=== PATIENT | female | born 1955 | race Caucasian/White ===

== ENCOUNTER 2016-05-25 09:42 | Emergency (ER) | payer OTHER ==
[~2016-05-25] VITALS: Ht 165.1 cm; Wt 56.8 kg
[2016-05-25 09:47] VITALS: BP 211/110; PULSE 90; RESP 20; O2SAT 100
--- NOTE | 2016-05-25 10:01 | ED.REPORT ---
HPI-General Illness Date of Service May 25, 2016 ED Provider: Joel Villalpando MD 60 year old female with a history of anxiety, ADHD, and HTN presents to the ER accompanied by her due to several years of abuse of her prescribed medication. She is requesting assistance weaning of said medications. Patient states that she began abusing because the prescribed dose has become increasingly less effective, and because her medication "gives her energy". She takes up to 6 tabs of dextroamphetamine at a time. Patient denies any suicidal or homicidal ideation, and any other medical complaints at this time. reports regular "medication binging" that involves staying awake for days at a time. Patient has called her primary care provider multiple times in recent weeks but has had no success contacting her. History of multiple refills of dextroamphetamine and clonazepam. Most recently, she filled 180 10mg tabs of dextroamphetamine 05/21/2016, of which she now has approximately 80 tabs remaining , and 60 0.5mg tabs of clonazepam 05/13/2016. She also admits to marijuana use. Nursing Notes Stated Complaint: ABUSE OF PRESCIPTION MEDS Chief Complaint: General Complaint Nursing Notes Reviewed: Yes Allergies: Coded Allergies: No Known Allergies (Unverified , 05/25/16) General Time Seen by MD: 10:00 Chief Complaint Other (Abuse of Prescription Medications) Hx Obtained From: Patient Arrived By: Walk-in Sudden in Onset?: No Onset Occurred: Onset unknown ("years") Past Medical History Past Medical History Anxiety ADHD Reports: Hypertension Social History Drug Use: THC Other Social History: Good social support, Ambulatory Status Independent Review of Systems Full Review of Systems Psychiatric: Reports: Anxiety, Insomnia, Denies: Change mental status, Confusion, Delusional, Depression, Hallucinations, auditory, Hallucinations, visual, Homicidal ideation, Hostile, Stress, Suicidal ideation, Unable to control self Complete sys rev & neg: except as marked. Physical Exam Vital Signs Vital Signs Date Time Temp Pulse Resp B/P Pulse Ox O2 Delivery O2 Flow Rate FiO2 05/25/16 14:16 80 20 175/109 98 Room Air 05/25/16 14:09 82 22 178/97 98 Room Air 05/25/16 09:47 36.2 90 20 211/110 100 Room Air Initial VS: Reviewed General/Constitutional: Well-developed, Well-nourished Head / Eyes: Atraumatic, Normocephalic Neck: Supple, Non-tender, Full range of motion Respiratory: Breath sounds normal, Clear to auscultation, No respiratory distress Cardiovascular: Regular rate & rhythm, Heart sounds normal, Intact distal pulses Extremities: Vascular intact, Neuro intact, No swelling, No tenderness Skin: Warm, Dry, No cyanosis Neurologic: Oriented X3, Speech NL, No motor deficits, No sensory deficits Psychiatric: Affect NL, Mood NL, Not suicidal, Not homicidal, No hallucinations , Cognitive function NL, Judgment/insight NL, Thought content NL Interpretation & Diagnostics Lab Results Interpretation Result Diagram: 05/25/16 1230 05/25/16 1230 Test 05/25/16 10:35 05/25/16 12:30 Hold Urine Received (Received) White Blood Count 7.5th/mm3 (3.8-10.1) Red Blood Count 4.45mil/mm3 (3.90-5.20) Hemoglobin 7.2g/dL (12.0-15.6) Hematocrit 24.9% (35.0-46.0) Mean Corpuscular Volume 56.0fL (81-100) Mean Corpuscular Hemoglobin 16.2pg (27.0-35.0) Mean Corpuscular Hemoglobin Concent 28.9% (32.0-37.0) Red Cell Distribution Width 19.2% (12.3-15.4) Platelet Count 629bil/L (150-400) Neutrophils (%) (Auto) 54.0% (40-74) Lymphocytes (%) (Auto) 28.8% (14-46) Monocytes (%) (Auto) 7.3% (4-12) Eosinophils (%) (Auto) 8.7% (0-5) Basophils (%) (Auto) 0.9% (0-3) Sodium Level 127mEq/L (134-144) Potassium Level 3.5mEq/L (3.5-5.2) Chloride Level 90mEq/L (97-108) Carbon Dioxide Level 24mmol/L (18-29) Blood Urea Nitrogen 11mg/dL (8-27) Creatinine 0.36mg/dL (0.57-1.00) Estimat Glomerular Filtration Rate 262mL/min (>59) Glucose Level 94mg/dL (60-99) Calcium Level 9.5mg/dL (8.5-10.1) Total Bilirubin 0.3mg/dL (0.0-1.2) Aspartate Amino Transf (AST/SGOT) 52U/L (0-50) Alanine Aminotransferase (ALT/SGPT) 42U/L (0-32) Alkaline Phosphatase 64U/L (25-165) Total Protein 7.1g/dL (6.4-8.4) Albumin 4.4g/dL (3.4-5.0) Re-Eval/Medical Decision Med Decision/Clinical Course In summary, the patient is a 60-year-old female prescribed large doses of dextroamphetamine as well as benzodiazepines for many years now presenting with her at admitting to several years of heavily abusing these medications. Most recently, she filled 180 10mg tabs of dextroamphetamine 05/21/2016, of which she now has approximately 80 tabs remaining, and 60 0.5mg tabs of clonazepam 05/13/2016. She also admits to marijuana use. Patient's states that when she felt her dextroamphetamine prescription that she generally goes on a binge of this medication staying up for many days at a time until she finally "crashes". Does not deny any of this. She states that she is never told her prescribing physician about this. She denies any suicidal ideation and here in the emergency department she is linear/organized and answering questions appropriately. She is afebrile with stable vital signs and examination as above. UA positive for marijuana and amphetamines Laboratory studies notable as below: No leukocytosis Hct 24.9 up from 22.5 on initial blood draw Hyponatremic, Sodium 127 up from 25 on initial blood Renal function normal Transaminases slightly elevated Patient was discussed in depth with her psychiatrist Dr. Quiroz who was quite surprised to hear that she is abusing her medications. She feels that the patient may continue to take her dextroamphetamine but it should be administered by her only and the prescribed dosage. She will make sure that the patient is seen first thing next week with plan to taper off this medication or discontinue it abruptly. From a psychiatric standpoint the patient is linear/organized without any suicidal ideation or disorganized behavior. We will reports quite manic behavior in the past when abusing her medications she is not manic in her presentation today. Patient was seen and fully evaluated by resident department [employer] social [employer] teacher did not feel that she requires psychiatric admission at this time and agrees with plan for outpatient management. That being said, I am quite surprised by the patient's significant anemia hyponatremia. Upon repeat history the patient admits to compulsive water consumption but denies any history of electrolyte abnormalities , GIB, melena or other explanation of her anemia. I advised admission however the patient adamantly refuses stating that she prefers to f/u with her PCP. Despite multiple attempts by myself and her nurse we are unable to convince her to be admitted for further workup. She is linear/organized and seems to have insight into her condition. She is not holdable from a medical or psychiatric perspective at this time. I discussed her the significant risks associated with anemia, bleeding and hyponatremia and she verbalizes understanding of this. She will call first thing tomorrow morning to follow up with her primary care doctor. Her well hold all of her medications and administer only as prescribed. The patient's additionally verbalizes understanding with the plan. He is advised to come right back to the emergency room should she change her mind about admission. Source of Hx: Old records Time of Eval: 11:08 Re-Evaluation/Progress Note: Updated patient on the plan of care. Time of Eval: 14:05 Re-Evaluation/Progress Note: Discussed lab results and need for admission. Patient is resistant to the plan, expresses desire to leave AMA. Discussed need for follow-up. Patient understands and agrees to the plan to leave AMA. Return precautions given. All other questions addressed. Consultation #1: Call Returned at: 11:04 Note: Discussed patient case with LUPIS Ayala. Consultation #2: Referral / Consult Name: Hoda Quiroz MD Consulted With: Psychiatry Call Returned at: 11:15 Note: Discussed patient case with her psychiatrist, Dr. Qiuroz. Will see patient next week. Agrees with plan to quit cold turkey, or decrease dose with monitoring medications. Counseled Regarding: Diagnosis, Lab results, Need for follow-up, When/why to return to ED Discharge & Departure Primary Impression: Polysubstance abuse Additional Impressions: Hyponatremia Anemia Anemia type: unspecified type Qualified Code: D64.9 - Anemia, unspecified Amphetamine abuse Marijuana abuse Noncompliance by refusing intervention or support Disposition: AGAINST MEDICAL ADVICE Discharge Condition All VS Reviewed: Yes Condition: Stable Patient Instructions: Hyponatremia (DC) Additional Instructions: Thank you for seeking care at emergency room for your medication abuse. Call your psychiatrist tomorrow to arrange a follow-up appointment to discuss your treatment plan. Call your primary care provider tomorrow to arrange a follow-up appointment as soon as possible for re-evaluation. Your should administer your prescribed dose of your medications. You should return to the ED immediately if you have any thoughts of harming yourself or others, or you develop confusion, dizziness/lightheadedness, or any other concerning signs or symptoms. Thank you for letting us partake in your care today. Referrals: Aurelio Ross MD (PCP) Hoda Quiroz MD Attestation Portions of this note were transcribed by Pérez Martinez. I, Dr. Villalpando, personally performed the history, physical exam and medical decision-making; I reviewed and confirmed the accuracy of the information in the transcribed note. Signed by: Eusebio Lorenz, 05/25/2016 and 14:13 copies to: Hoda Quiroz MD; Aurelio Ross MD, Beck O MD May 25, 2016 10:01 PÉREZ MARTINEZ May 25, 2016 10:18
[2016-05-25 11:50] LABS: BASOPHILS % (AUTO) 1.2 % (0-3); EOSINOPHILS % (AUTO) 8.7 % (0-5); MONOCYTES % (AUTO) 7.5 % (4-12); Mean Corpuscular Hemoglobin 16.6 pg (27.0-35.0); Mean Corpuscular Volume 55.7 fL (81-100); NEUTROPHILS % (AUTO) 56.6 % (40-74); Platelet Count 571 bil/L (150-400)
[2016-05-25 13:38] LABS: BASOPHILS % (AUTO) 0.9 % (0-3); EOSINOPHILS % (AUTO) 8.7 % (0-5); MONOCYTES % (AUTO) 7.3 % (4-12); Mean Corpuscular Hemoglobin 16.2 pg (27.0-35.0); Platelet Count 629 bil/L (150-400)
[2016-05-25] MEDS ORDERED: 0.9% Sodium Chloride 1,000 ML IV SCH (14:05)
[2016-05-25 14:09] VITALS: BP 178/97; PULSE 82; RESP 22; O2SAT 98
[2016-05-25 14:16] VITALS: BP 175/109; PULSE 80; RESP 20; O2SAT 98
== END 2016-05-25 14:30 | disposition left against medical advice (07) ==
LOC: SED 09:42
DX: F19.20 Other psychoactive substance dependence, uncomplicated (principal); E87.1 Hypo-osmolality and hyponatremia; D64.9 Anemia, unspecified; F15.20 Other stimulant dependence, uncomplicated; F12.20 Cannabis dependence, uncomplicated; I10 Essential (primary) hypertension; F41.9 Anxiety disorder, unspecified; F90.9 Attention-deficit hyperactivity disorder, unspecified type; Z91.19 Patient's noncompliance with other medical treatment and regimen

== ENCOUNTER 2016-05-31 19:10 | Emergency (ER) | payer OTHER ==
[2016-05-31 19:12] VITALS: BP 156/101; PULSE 88; RESP 16; O2SAT 100
--- NOTE | 2016-05-31 21:03 | ED.REPORT ---
HPI-General Illness Date of Service May 31, 2016 ED Provider: Dr. Marty Whittington MD A 60 year old female with a history of substance abuse, (chronic use and abuse of prescribed amphetamines) anxiety, ADHD, and hypertension presents to the ED complaining of worsening fatigue that began one week ago. Patient was seen in the ED on 05/25 for polysubstance abuse, hypokalemia and anemia and was discharged AGAINST MEDICAL ADVICE in good condition. Patient reports that she used to take up to 6 dextroamphetamine per day. Since abstaining (at her 's insistence) from the dextroamphetamine, patient has been experiencing weakness and general malaise. She states that she has been unable to eat because of the weakness. Patient denies history of ulcer or abnormal menses. She denies melena or bloody stools. She now presents hoping for hospital admission, as she feels unable to move around the house very well, and is eating very little. Nursing Notes Stated Complaint: MEDICATION ISSUES Chief Complaint: General Complaint Nursing Notes Reviewed: Yes Allergies: Coded Allergies: No Known Allergies (Unverified , 05/25/16) Scheduled Ferrous Sulfate (Ferrous Sulfate) 325 Mg Tablet 325 MG PO BID General Time Seen by MD: 21:04 Chief Complaint Other (Fatigue ) Hx Obtained From: Patient Arrived By: Walk-in Sudden in Onset?: No Onset Occurred: 1 week ago Symptom Duration: Since onset Associated with: Reports: Weakness Pertinent Negative: Pt denies other symptoms Recent Healthcare: No recent doctor visit, Recent hospitalization (05/25) Past Medical History Past Medical History Hypertension Anxiety ADHD Amphetamine addiction/abuse and current withdrawal Past Surgical History None reported Smoking History Unknown if Ever Smoker Social History Drug Use: THC Other Social History: Good social support, Ambulatory Status Independent Review of Systems Full Review of Systems Constitutional: Reports: Fatigue, Malaise, Weakness - generalized, Denies: Chills, Fever Respiratory: Denies: Shortness of breath Cardiovascular: Denies: Chest pain GI: Denies: Abdominal pain, Bloody/tarry stool, Hematemesis, Hematochezia, Melena, Nausea, Vomiting Neurologic: Reports: Weakness, Denies: Change LOC Complete sys rev & neg: except as marked. Physical Exam Vital Signs Vital Signs Date Time Temp Pulse Resp B/P Pulse Ox O2 Delivery O2 Flow Rate FiO2 05/31/16 23:43 90 16 173/91 97 Room Air 05/31/16 23:43 90 16 173/91 97 Room Air 05/31/16 19:12 36.7 88 16 156/101 100 Room Air Initial VS: Reviewed Neck: Supple, Non-tender, Full range of motion Skin: Warm, Dry, No cyanosis Neurologic: Alert, Oriented, Nonfocal Psychiatric: Mood/affect normal, Behavior normal, Normal thought content General/Constitutional: Awake, Alert, No acute distress Head / Eyes: Atraumatic, Normocephalic HEAD/EYES: Pale Sclera Respiratory / Chest: Atraumatic, Breath sounds NL, Breath sounds = bilat, No respiratory distress Cardiovascular: Heart rate NL, Regular rhythm, Heart sounds NL Abdomen: Atraumatic, Soft Upper Extremities Upper Extremity / MS: Atraumatic, Inspection NL, Neurologic intact, Vascular intact Lower Extremity / Pelvis / MS: Atraumatic, Inspection NL, Neurologic intact, Vascular intact Interpretation & Diagnostics Lab Results Interpretation Result Diagram: 05/31/16214905/31/162149 Test 05/31/16 21:50 05/31/16 22:20 White Blood Count 8.1th/mm3 (3.8-10.1) Red Blood Count 4.50mil/mm3 (3.90-5.20) Hemoglobin 7.3g/dL (12.0-15.6) Hematocrit 25.8% (35.0-46.0) Mean Corpuscular Volume 57.3fL (81-100) Mean Corpuscular Hemoglobin 16.2pg (27.0-35.0) Mean Corpuscular Hemoglobin Concent 28.3% (32.0-37.0) Red Cell Distribution Width 19.3% (12.3-15.4) Platelet Count 497bil/L (150-400) Neutrophils (%) (Auto) 47.4% (40-74) Lymphocytes (%) (Auto) 36.1% (14-46) Monocytes (%) (Auto) 6.6% (4-12) Eosinophils (%) (Auto) 8.2% (0-5) Basophils (%) (Auto) 1.6% (0-3) Erythrocyte Sedimentation Rate 12mm/hr (0-40) Hematology Comments Prothrombin Time 9.7sec (8.1-12.5) Prothromb Time International Ratio 0.91ratio Sodium Level 131mEq/L (134-144) Potassium Level 4.2mEq/L (3.5-5.2) Chloride Level 93mEq/L (97-108) Carbon Dioxide Level 27mmol/L (18-29) Blood Urea Nitrogen 13mg/dL (8-27) Creatinine 0.52mg/dL (0.57-1.00) Estimat Glomerular Filtration Rate 172mL/min (>59) Glucose Level 117mg/dL (60-99) Calcium Level 10.0mg/dL (8.5-10.1) Magnesium Level 2.0mg/dL (1.6-2.6) Iron Level 12ug/dL (35-150) Total Iron Binding Capacity 631ug/dL (250-450) Percent Iron Saturation 2%sat (15-50) Unsaturated Iron Binding 618.6ug/dL Total Bilirubin 0.2mg/dL (0.0-1.2) Aspartate Amino Transf (AST/SGOT) 23U/L (0-50) Alanine Aminotransferase (ALT/SGPT) 15U/L (0-32) Alkaline Phosphatase 50U/L (25-165) Troponin T 0.010ug/L (0.0-0.011) Pro-B-Type Natriuretic Peptide 129.9pg/mL (0-287) Total Protein 7.0g/dL (6.4-8.4) Albumin 4.2g/dL (3.4-5.0) Lipase 46U/L (13-60) Thyroid Stimulating Hormone (TSH) 3.280uIU/mL (0.450-4.500) Free Thyroxine 1.07ng/dL (0.82-1.77) Hold Steele Top Tube Received (Received) Urine Color Straw (YELLOW) Urine Appearance Clear (CLEAR,HAZY) Urine pH 6.5 (5.0-8.0) Urine Specific [place] 1.010 (1.003-1.035) Urine Protein Negativemg/dL (NEG,TRACE) Urine Glucose (UA) Negativemg/dL (NEGATIVE) Urine Ketones Negativemg/dL (NEGATIVE) Urine Occult Blood Negative (NEGATIVE) Urine Nitrite Negative (NEGATIVE) Urine Bilirubin Negative (NEGATIVE) Urine Urobilinogen Normalmg/dL (NORMAL) Urine Leukocyte Esterase Negative (NEGATIVE) Urine RBC 0-2/hpf (0-2) Urine WBC 0-5/hpf (0-5) Urine Epithelial Cells Occasional/hpf (NONE-MOD) Urine Crystals None seen (NONE SEEN) Urine Bacteria None/hpf (NONE-FEW) Urine Hyaline Casts None/lpf (NONE) Urine Granular Casts None seen (NONE SEEN) Urine Waxy Casts None seen (NONE SEEN) Urine Red Blood Cell Casts None seen (NONE SEEN) Urine White Blood Cell Casts None seen (NONE SEEN) Urine Mucus None seen (None Seen) Urine Trichomonas None seen (NONE SEEN) Urine Yeast None (NONE SEEN) Urine Culture Reflexed Not indicated ECG Interpretation ECG Interpretation: Sinus Rhythm LVH chest leadvolts Rate 85 Time: 21:22 Interpreted by: ED physician X-Ray Chest Interpretation Chest Xray Interpretation: IMPRESSION: No acute abnormalities Interpretation / Wet Read by: Wet read ED physician Re-Eval/Medical Decision Med Decision/Clinical Course 60-year-old female with recent precipitous discontinuation of dextroamphetamine by prescription. She has been abusing these, sometimes taking his many as six tablets at a time. She is now understandably lethargic and unmotivated, not unusual for abrupt withdrawal from amphetamines. She already has a psychiatrist and use to consult therefore possible anti-depressant therapy, but there is no indication for hospitalization for withdrawal from amphetamines. Her hyponatremia, which was profound on her first presentation, has completely resolved. She is still anemic but unchanged. This is obviously iron deficiency anemia. She needs upper and lower GI evaluation reasonably urgently. She was provided with iron, based on her gross iron deficiency by test, and by her MCV of fifty-eight. She is discharged now stable condition with the support of her for home therapy and for follow-up with her psychiatrist and PCP. Time of Eval: 23:33 Patient Status: Condition improved Re-Evaluation/Progress Note: Patient is rechecked. She is informed of her lab results, X-ray results and diagnosis. All of the patient's questions are addressed. She understands and agrees with the treatment plan to discharge. Counseled Regarding: Diagnosis, Lab results, Need for follow-up, When/why to return to ED Discharge & Departure Primary Impression: Amphetamine abuse Additional Impression: Iron deficiency anemia Iron deficiency anemia type: unspecified iron deficiency Qualified Code: D50.9 - Iron deficiency anemia, unspecified Disposition: Home Discharge Condition All VS Reviewed: Yes Condition: Stable Patient Instructions: Amphetamine/Dextroamphetamine (By mouth), Iron Deficiency Anemia (DC) Additional Instructions: Your low sodium has resolved. Your anemia remains unchanged. This needs to be investigated with endoscopy, and your doctor can arrange that. There is a possibility of colon polyps and even early cancers, and this should not be ignored. Meanwhile, take iron twice daily with food. Follow-up with your psychiatrist regarding her amphetamine withdrawal. Generally, an antidepressant is helpful in reducing the symptoms of craving and improving your overall sense of well-being. Follow-up with your regular doctor as soon as possible. Return for any immediate issues of concern. Referrals: Aurelio Ross MD (PCP) Scribe Attestation Portions of this note were transcribed by Marion Reagan. I, Dr. Whittington personally performed the history, physical exam and medical decision-making; I reviewed and confirmed the accuracy of the information in the transcribed note. Signed by: Eusebio Hernández, 05/31/16 0111. copies to: Aurelio Ross MD, Christopher W MD May 31, 2016 21:03 MARION REAGAN May 31, 2016 21:16
[2016-05-31 22:29] LABS: Mean Corpuscular Volume 57.3 fL (81-100)
[2016-05-31 22:30] LABS: Mean Corpuscular Hemoglobin 16.2 pg (27.0-35.0); Platelet Count 497 bil/L (150-400)
[2016-05-31 22:32] LABS: INR 0.91 ratio
[2016-05-31 22:42] LABS: ERYTHROCYTE SEDIMENTATION RATE 12 mm/hr (0-40)
[2016-05-31 22:54] LABS: BASOPHILS % (AUTO) 1.6 % (0-3); EOSINOPHILS % (AUTO) 8.2 % (0-5); MONOCYTES % (AUTO) 6.6 % (4-12); NEUTROPHILS % (AUTO) 47.4 % (40-74)
[2016-05-31 22:57] LABS: TROPONIN T 0.01 ug/L (0.0-0.011); Unsaturated Iron Binding 618.6 ug/dL
[2016-05-31 23:09] LABS: APPEARANCE,URINE CLEAR (CLEAR,HAZY); COLOR,URINE STRAW (YELLOW); OCCULT BLOOD,URINE NEGATIVE (NEGATIVE); PH,URINE 6.5 (5.0-8.0); UROBILINOGEN,URINE NORMAL (NORMAL)
[2016-05-31] MEDS ORDERED: FERR-83 PO (23:30)
[2016-05-31 23:43] VITALS: BP 173/91; PULSE 90; RESP 16; O2SAT 97
--- NOTE | 2016-06-01 15:13 | DRSVH ---
PROCEDURE: X-RAY CHEST ONE VIEW, PORTABLE ([id number]) INDICATIONS: chf by hx TECHNIQUE: One view of the chest was acquired. COMPARISON: None. FINDINGS: Surgical changes and devices: None. Lungs and pleura: No pleural effusions or pneumothorax. Lungs are clear. Mild hyperexpansion sugge stive of COPD. Mediastinum: Mediastinal contours appear normal. Heart size is normal. Bones and chest wall: No suspicious bony lesions. Overlying soft tissues appear unremarkable. IMPRESSION: No acute pulmonary process. Dictated by: Marizol Bedoya M.D. on 05/31/2016 at 21:37 Approved by: Marizol Bedoya M.D. on 05/31/2016 at 21:38
== END 2016-05-31 23:44 | disposition home or self-care (01) ==
LOC: SED 19:10
DX: F15.10 Other stimulant abuse, uncomplicated (principal); D50.9 Iron deficiency anemia, unspecified; I10 Essential (primary) hypertension

== ENCOUNTER 2016-08-07 08:45 | Emergency (ER) | payer OTHER, MEDICARE ==
[~2016-08-07] VITALS: Ht 162.6 cm; Wt 52.3 kg
[~2016-08-07 08:45] MED LIST: FERR-83 PO
[2016-08-07 08:57] VITALS: BP 159/96; PULSE 103; RESP 26; O2SAT 98
[2016-08-07 09:04] VITALS: BP 159/96; PULSE 100; RESP 24; O2SAT 97
--- NOTE | 2016-08-07 09:05 | ED.REPORT ---
HPI-Altered Mental Status Date of Service Aug 07, 2016 ED Provider: Dr. Rowell A 60 year old female with h/o amphetamine substance abuse, bipolar, HTN, and anxiety presents to the ED via EMS due to AMS. Per , patient was up all night walking around the house. Patient reports that thought she was acting strange and he decided to call EMS, but she is unsure why.Per EMS, the patient was holding her dog's medication on scene. Associated symptoms include facial bruising from a fall. She denies any headache, chest pain, abdominal pain , extremity pain, or loss of extremity functioning. She reports normal bowel movements and urination. She reports that she does not normally eat very much, and does not notice any change in baseline appetite or fluid intake. She has not been on her amphetamine medication for 2 months. She reports that she is at [facility], and the month is July. Nursing Notes Stated Complaint: ALT LOC Chief Complaint: General Complaint Nursing Notes Reviewed: Yes Allergies: Coded Allergies: No Known Allergies (Unverified , 08/07/16) Scheduled Ferrous Sulfate (Ferrous Sulfate) 325 Mg Tablet 325 MG PO BID General Time Seen by MD: 09:04 Chief Complaint Other (AMS) Hx Obtained From: Patient, EMS Arrived By: Ambulance Sudden in Onset?: No Onset Occurred: Onset unknown Symptom Duration: Duration unknown Progression since Onset: Unchanged Severity: Current: No pain currently Severity: Maximum: No pain Recent Healthcare: No recent doctor visit Similar Sx Previous: No Past Medical History Past Medical History Notes: 05/31/16 ED visit for fatigue, diagnosed with amphetamine abuse. Past Medical History Hypertension Anxiety bipolar ADHD Amphetamine addiction/abuse and current withdrawal Denies migraines Denies: Stroke Denies: Seizure disorder Past Surgical History None reported Reports: Appendectomy, Denies: Cholecystectomy, Hysterectomy Smoking History Former Smoker Social History Alcohol Use: "Social" Drug Use: THC Other Social History: Good social support, Ambulatory Status Independent Review of Systems Review of Systems Note: no change in appetite Cardiovascular: Denies: Chest pain GI: Denies: Abdominal pain Skin: Reports Bruising (face) Neurologic: Denies: Headache Complete sys rev & neg: except as marked. Female: Denies: Incontinence Musculoskeletal: Denies: Extremity pain Physical Exam Initial Vital Signs Vital Signs (First) Date Time Temp Pulse Resp B/P Pulse Ox O2 Delivery O2 Flow Rate FiO2 08/07/16 08:57 36.8 103 26 159/96 98 Room Air Initial VS: Reviewed, Vital signs abnormal Skin: Warm, Dry General/Constitutional: Awake, Alert, No acute distress, Well appearing Head / Eyes: Normocephalic, PERRL, EOMI Bruising next to left eye. Neck: Atraumatic, Supple, No meningismus, Full range of motion Respiratory / Chest: Atraumatic, Breath sounds NL, Breath sounds = bilat, No respiratory distress, No rales, No rhonchi, No wheezing Cardiovascular: Heart rate NL, Regular rhythm, Heart sounds NL, No gallop, No murmurs, No rubs Neurologic: Oriented X3, No motor deficits, No sensory deficits, CN II - XII intact Speech: Positive: Slurred (slightly slurred speech) ENT: Atraumatic, Mucous membranes moist Abdomen: Soft, Non-tender, No guarding, No rebound Interpretation & Diagnostics Lab Results Interpretation Result Diagram: 08/07/16 0948 08/07/16 0948 Test 08/07/16 09:48 White Blood Count 17.2th/mm3 (3.8-10.1) Red Blood Count 4.76mil/mm3 (3.90-5.20) Hemoglobin 10.5g/dL (12.0-15.6) Hematocrit 34.4% (35.0-46.0) Mean Corpuscular Volume 72.3fL (81-100) Mean Corpuscular Hemoglobin 22.1pg (27.0-35.0) Mean Corpuscular Hemoglobin Concent 30.5% (32.0-37.0) Red Cell Distribution Width 25.7% (12.3-15.4) Platelet Count 442bil/L (150-400) Neutrophils (%) (Auto) 81.6% (40-74) Lymphocytes (%) (Auto) 11.3% (14-46) Monocytes (%) (Auto) 6.6% (4-12) Eosinophils (%) (Auto) 0.1% (0-5) Basophils (%) (Auto) 0.2% (0-3) Sodium Level 134mEq/L (134-144) Potassium Level 3.8mEq/L (3.5-5.2) Chloride Level 94mEq/L (97-108) Carbon Dioxide Level 26mmol/L (18-29) Blood Urea Nitrogen 13mg/dL (8-27) Creatinine 0.67mg/dL (0.57-1.00) Estimat Glomerular Filtration Rate 128mL/min (>59) Glucose Level 119mg/dL (60-99) Calcium Level 10.8mg/dL (8.5-10.1) Magnesium Level 2.4mg/dL (1.6-2.6) Total Bilirubin 0.3mg/dL (0.0-1.2) Aspartate Amino Transf (AST/SGOT) 34U/L (0-50) Alanine Aminotransferase (ALT/SGPT) 21U/L (0-32) Alkaline Phosphatase 52U/L (25-165) Total Protein 6.8g/dL (6.4-8.4) Albumin 4.6g/dL (3.4-5.0) Alcohols < 10mg/dL (0-10) ECG Interpretation ECG Interpretation: Rate is 97. Sinus rhythm. Normal axis, no ST or T wave changes. Time: 09:40 Interpreted by: ED physician X-Ray Chest Interpretation Chest Xray Interpretation: IMPRESSION: No acute cardiopulmonary process is evident. Dictated by: Justin Cintron M.D. on 08/07/2016 at 8:48 Approved by: Justin Cintron M.D. on 08/07/2016 at 8:49 Interpretation / Wet Read by: Interpret - Radiologist CT Head Interpretation IMPRESSION: 1. No acute intracranial hemorrhage. 2. Mild parenchymal volume loss. 3. Possible chronic small vessel ischemic changes. Dictated by: Justin Cintron M.D. on 08/07/2016 at 8:49 Approved by: Justin Cintron M.D. on 08/07/2016 at 8:51 Interpretation / Wet Read by: Interpret - Radiologist Re-Eval/Medical Decision Med Decision/Clinical Course The patient's called EMS and he was concerned about her mental status, he never showed up in the ER. The patient was appropriate in answering questions , she was alert while here. The only abnormality was she had some slight slurring of her speech which could be related to benzodiazepine or stroke. She otherwise has a normal neurologic exam. The patient says she has a dry mouth and her speech is normal. She did not have any waxing or waning symptoms. Her evaluation here was unremarkable. Additional differential diagnoses considered were bloodshot abnormality such as hyponatremia, substance abuse, urinary infection, and pneumonia. The patient was found to have an elevated white cell count however she has no symptoms of infection and no source of infection was found. Source of Hx: Old records, EMS Re-Evaluation/Progress : Time of Eval: 10:45 Patient Status: Condition improved Re-Evaluation/Progress Note: Rechecked patient, explained test results, diagnosis, and plan for discharge. Patient understands and agrees with the plan. Allquestions addressed. Counseled Regarding: Diagnosis, Lab results, Need for follow-up Patient Discharge & Departure Impression: Primary Impression: Behavior concern in adult Disposition: Home Discharge Condition All VS Reviewed: Yes Condition: Improved Additional Instructions: Your behavior and mentation are normal to us here in the ED. There are signs of infection in your blood, but you urine, chest XRay and all other tests were normal. Return to the emergency department if If you have a fever, or any new or worsening or concerning symptoms. Referrals: Aurelio Ross MD (PCP) Scribe Attestation Portions of this note were transcribed by Mayank Andersen. I, Dr. Rowell personally performed the history, physical exam and medical decision-making; I reviewed and confirmed the accuracy of the information in the transcribed note. Signed by: Eusebio Tong, 08/07/2016, 1113. copies to: Aurelio Ross MD, Jena M MD Aug 07, 2016 09:05 Mayank Andersen Aug 07, 2016 09:14
[2016-08-07] MEDS ORDERED: 0.9% Sodium Chloride 1,000 ML IV ONE (09:14)
--- NOTE | 2016-08-07 09:51 | DRSVH ---
PROCEDURE: X-RAY CHEST ONE VIEW, PORTABLE ([id number]) INDICATIONS: confusion TECHNIQUE: One view of the chest was acquired. COMPARISON: [facility], CR, XR CHEST 1VW (PORTABLE), 05/31/2016, 21:11. FINDINGS: Surgical changes and devices: None. Lungs and pleura: No pleural effusions or pneumothorax. Lungs are clear. The lungs may be hyperexp anded. Mediastinum: Mediastinal contours appear normal. Heart size is normal. There appears to be mild ao rtic atherosclerosis. Bones and chest wall: No suspicious bony lesions. Overlying soft tissues appear unremarkable. IMPRESSION: No acute cardiopulmonary process is evident. Dictated by: Justin Cintron M.D. on 08/07/2016 at 8:48 Approved by: Justin Cintron M.D. on 08/07/2016 at 8:49
--- NOTE | 2016-08-07 09:53 | DRSVH ---
PROCEDURE: CT BRAIN WITHOUT CONTRAST ([id number]) INDICATIONS: slurring of speech TECHNIQUE: Noncontrast 4.5 mm thick angled axial sections acquired from the foramen magnum to the vertex, with c oronal reformats. COMPARISON: None. FINDINGS: Image quality: Diagnostic. Brain: There is no acute intra-axial or extra-axial hemorrhage. No extra-axial fluid collection is i dentified. There is no midline shift or mass effect. The orbits are grossly unremarkable. No large areas of diffusely decreased attenuation are evident within the brain to suggest diffuse cer ebral edema. No definite parenchymal abnormalities are identified. However, there are possible vagu e subtle areas of low attenuation within the deep white matter of the supratentorial brain. The ventricles and cortical sulci are moderately prominent Bones: Calvarium and visualized facial bones are grossly intact. The imaged paranasal sinuses and m astoid air cells are clear. IMPRESSION: 1. No acute intracranial hemorrhage. 2. Mild parenchymal volume loss. 3. Possible chronic small vessel ischemic changes. Dictated by: Justin Cintron M.D. on 08/07/2016 at 8:49 Approved by: Justin Cintron M.D. on 08/07/2016 at 8:51
[2016-08-07 09:58] LABS: BASOPHILS % (AUTO) 0.2 % (0-3); EOSINOPHILS % (AUTO) 0.1 % (0-5); MONOCYTES % (AUTO) 6.6 % (4-12); Mean Corpuscular Hemoglobin 22.1 pg (27.0-35.0); Mean Corpuscular Volume 72.3 fL (81-100); NEUTROPHILS % (AUTO) 81.6 % (40-74); Platelet Count 442 bil/L (150-400)
[2016-08-07 10:19] LABS: Magnesium 2.4 mg/dL (1.6-2.6)
[2016-08-07 11:27] VITALS: BP 157/99; PULSE 98; RESP 19; O2SAT 99
[2016-08-07 11:34] VITALS: BP 157/99; PULSE 98; RESP 19; O2SAT 99
[2016-08-08] MEDS ORDERED: TRAZ-118 PO (17:42)
[2016-08-08] MEDS ORDERED: PROP20TA5 PO (17:42)
[2016-08-08] MEDS ORDERED: BUPR100T8 PO (17:42)
[2016-08-08] MEDS ORDERED: ZIPR80CA22 PO (17:42)
[2016-08-08] MEDS ORDERED: ROSU10TA24 PO (17:42)
[2016-08-08] MEDS ORDERED: LISI-567 PO (17:42)
[2016-08-08] MEDS ORDERED: BUSP30TA2 PO (17:42)
[2016-08-08] MEDS ORDERED: KLO5T PO (17:42)
[2016-08-08] MEDS ORDERED: MIRT30TA6 PO (17:42)
[2016-08-08] MEDS ORDERED: ZIPR40CA24 PO (17:42)
== END 2016-08-07 11:34 | disposition home or self-care (01) ==
LOC: SED 08:45
DX: R46.4 Slowness and poor responsiveness (principal); R41.82 Altered mental status, unspecified; I10 Essential (primary) hypertension; F15.180 Other stimulant abuse with stimulant-induced anxiety disorder; F31.9 Bipolar disorder, unspecified; Z87.891 Personal history of nicotine dependence
CPT/HCPCS: 36415; 70450; 71010; 80053; 81002; 83735; 85025; 93005; 96360; 99285; G0480; J7030

== ENCOUNTER 2016-08-08 15:11 | Inpatient (IN) | payer OTHER, MEDICARE ==
[~2016-08-08] VITALS: Ht 162.6 cm; Wt 53.9 kg
[2016-08-08 15:22] VITALS: BP 147/96; PULSE 83; RESP 16; O2SAT 98
--- NOTE | 2016-08-08 15:57 | ED.REPORT ---
HPI-General Illness Date of Service Aug 08, 2016 ED Provider: Joel Villalpando MD Pt is a 60 year old female with a medical history including hypertension, bipolar disorder, and amphetamine abuse presents to the ED with altered mental status noticed by her last night at 1800. The patient was reportedly acting normal two days ago when her left for work, but he returned home yesterday to find her disoriented, falling over, making incoherent statements, and acting abnormally. Associated symptoms include two days of insomnia and balance problems intermittently, she has been up all night cleaning the house rapidly moving from one task to another. The patient denies chest pain, SOB, or other symptoms. She was seen in the ED at onset last night but presented awake and alert, and was subsequently discharged after a normal work-up, before her 's arrival. The patient has had similar symptoms in the past associated with amphetamine abuse, but she denies any recent amphetamine use. The patient' s psychiatrist recently prescribed Wellbutrin which she reportedly began taking one week ago, but her could not find the bottle today and it is not with the medications she has brought in. Nursing Notes Stated Complaint: DISORIENTATION, CONFUSION Chief Complaint: Neuro Symptoms/ Deficits Nursing Notes Reviewed: Yes Allergies: Coded Allergies: No Known Allergies (Unverified , 08/08/16) Scheduled Bupropion ER (Bupropion ER) 100 Mg Tablet.er 100 MG PO BID Buspirone (Buspirone) 30 Mg Tablet 30 MG PO BID Ferrous Sulfate (Ferrous Sulfate) 325 Mg Tablet 325 MG PO BID Lisinopril (Lisinopril) 20 Mg Tablet 20 MG PO DAILYWD Mirtazapine (Mirtazapine) 30 Mg Tablet 60 MG PO DAILYWD Propranolol HCl (Propranolol HCl) 20 Mg Tablet 20 MG PO TID Rosuvastatin Calcium (Rosuvastatin Calcium) 10 Mg Tablet 10 MG PO DAILYWD Trazodone (Trazodone) 100 Mg Tablet 150-200 MG PO HS Ziprasidone (Ziprasidone) 80 Mg Capsule 80 MG PO QAM ZIPRASIDONE 80 MG IN AM, 40 MG W/ DINNER Ziprasidone (Ziprasidone) 40 Mg Capsule 40 MG PO DAILYWD ZIPRASIDONE 80 MG IN AM, 40 MG W/ DINNER Scheduled PRN Clonazepam (Clonazepam) 0.5 Mg Tablet 0.5 MG PO BID PRN PRN For Anxiety General Time Seen by MD: 15:57 Chief Complaint Altered mental status Hx Obtained From: Patient, Spouse Arrived By: Walk-in Sudden in Onset?: Yes Onset Occurred: Yesterday (Noticed by ) Symptom Duration: Since onset Severity: Current: No pain currently Severity: Maximum: No pain Pertinent Negative: Relieved by nothing Context Related History: Reports Psychiatric history Recent Healthcare: Recent doctor visit Similar Sx Previous: Yes Past Medical History Past Medical History Notes: 05/31/16 ED visit for fatigue, diagnosed with amphetamine abuse. Past Medical History Hypertension Anxiety Bipolar ADHD Prescription amphetamine addiction/abuse and withdrawal Denies migraines Past Surgical History None reported Reports: Appendectomy Smoking History Former Smoker Social History Alcohol Use: "Social" Drug Use: THC Other Social History: Good social support, Ambulatory Status Independent Review of Systems + Acting abnormally, making incoherent statements, balance problems Full Review of Systems Constitutional: Denies: Fever Respiratory: Denies: Non-productive cough, Shortness of breath Cardiovascular: Denies: Chest pain GI: Denies: Diarrhea, Vomiting Psychiatric: Reports: Change mental status, Confusion (Disorientation), Insomnia Complete sys rev & neg: except as marked. Physical Exam Vital Signs Vital Signs Date Time Temp Pulse Resp B/P Pulse Ox O2 Delivery O2 Flow Rate FiO2 08/08/16 17:59 36.8 74 23 122/77 99 Room Air 08/08/16 17:53 74 23 122/77 99 Room Air 08/08/16 15:22 36.8 83 16 147/96 98 Room Air Initial VS: Reviewed Skin: Warm, Dry General/Constitutional: Awake, Alert Behavior: Positive: Agitated Slightly pressured Head / Eyes: Atraumatic, Normocephalic ENT: Airway patent Mouth: Positive: Mucous membranes dry Respiratory / Chest: Breath sounds NL, Breath sounds = bilat, No respiratory distress Cardiovascular: Heart rate NL, Regular rhythm, Heart sounds NL, No gallop, No murmurs, No rubs Abdomen: Atraumatic, Soft, Non-tender Neurologic: Oriented X3, Speech NL, No motor deficits, No sensory deficits Interpretation & Diagnostics URINE DRUG SCREEN: + Benzodiazepines + Marijuana Otherwise Negative Lab Results Interpretation Result Diagram: 08/08/16 1620 08/08/16 1620 Test 08/08/16 16:20 08/08/16 17:08 White Blood Count 11.9th/mm3 (3.8-10.1) Red Blood Count 4.46mil/mm3 (3.90-5.20) Hemoglobin 9.9g/dL (12.0-15.6) Hematocrit 32.4% (35.0-46.0) Mean Corpuscular Volume 72.6fL (81-100) Mean Corpuscular Hemoglobin 22.2pg (27.0-35.0) Mean Corpuscular Hemoglobin Concent 30.6% (32.0-37.0) Red Cell Distribution Width 24.7% (12.3-15.4) Platelet Count 363bil/L (150-400) Neutrophils (%) (Auto) 79.6% (40-74) Lymphocytes (%) (Auto) 13.7% (14-46) Monocytes (%) (Auto) 5.9% (4-12) Eosinophils (%) (Auto) 0.3% (0-5) Basophils (%) (Auto) 0.3% (0-3) Sodium Level 130mEq/L (134-144) Potassium Level 3.5mEq/L (3.5-5.2) Chloride Level 92mEq/L (97-108) Carbon Dioxide Level 20mmol/L (18-29) Blood Urea Nitrogen 13mg/dL (8-27) Creatinine 0.53mg/dL (0.57-1.00) Estimat Glomerular Filtration Rate 168mL/min (>59) Glucose Level 82mg/dL (60-99) Calcium Level 9.9mg/dL (8.5-10.1) Magnesium Level 1.8mg/dL (1.6-2.6) Total Bilirubin 0.3mg/dL (0.0-1.2) Aspartate Amino Transf (AST/SGOT) 61U/L (0-50) Alanine Aminotransferase (ALT/SGPT) 26U/L (0-32) Alkaline Phosphatase 46U/L (25-165) Troponin T 0.013ug/L (0.0-0.011) Pro-B-Type Natriuretic Peptide 3788pg/mL (0-287) Total Protein 6.8g/dL (6.4-8.4) Albumin 4.3g/dL (3.4-5.0) Thyroid Stimulating Hormone (TSH) 2.850uIU/mL (0.450-4.500) Free Thyroxine 1.55ng/dL (0.82-1.77) Hold Steele Top Tube Received (Received) Salicylates Level < 3.0ug/mL (30-250) Acetaminophen Level < 15.0ug/mL Rx (10-25) Urine Color Yellow (YELLOW) Urine Appearance Hazy (CLEAR,HAZY) Urine pH 6.0 (5.0-8.0) Urine Specific [place] 1.025 (1.003-1.035) Urine Protein Negativemg/dL (NEG,TRACE) Urine Glucose (UA) Negativemg/dL (NEGATIVE) Urine Ketones Tracemg/dL (NEGATIVE) Urine Occult Blood Negative (NEGATIVE) Urine Nitrite Negative (NEGATIVE) Urine Bilirubin Negative (NEGATIVE) Urine Urobilinogen Normalmg/dL (NORMAL) Urine Leukocyte Esterase Negative (NEGATIVE) Urine RBC 0-2/hpf (0-2) Urine WBC 0-5/hpf (0-5) Urine Epithelial Cells Moderate/hpf (NONE-MOD) Urine Crystals None seen (NONE SEEN) Urine Bacteria Few/hpf (NONE-FEW) Urine Hyaline Casts None/lpf (NONE) Urine Granular Casts None seen (NONE SEEN) Urine Waxy Casts None seen (NONE SEEN) Urine Red Blood Cell Casts None seen (NONE SEEN) Urine White Blood Cell Casts None seen (NONE SEEN) Urine Mucus Present (None Seen) Urine Trichomonas None seen (NONE SEEN) Urine Yeast None (NONE SEEN) Urinalysis Comment None Urine Culture Reflexed Not indicated Urine Opiates Screen Negative Urine Methadone Screen Negative Urine Barbiturates Screen Negative Urine Amphetamines Screen Negative Urine Benzodiazepines Screen Negative Urine Cocaine Metabolite Screen Negative Urine Cannabinoids Screen Positive ECG Interpretation ECG Interpretation: Sinus rhythm rate 81 QTC 680 Diffuse T-wave inversions throughout When compared to prior (08/07/16) QTC is now prolonged and there are now T-wave inversions all leads Time: 16:24 Interpreted by: ED physician CT Head Interpretation IMPRESSION: Unchanged head CT. No acute intracranial hemorrhage. Dictated by: Justin Cintron M.D. on 08/08/2016 at 15:59 Study: Head CT no contrast Re-Eval/Medical Decision Med Decision/Clinical Course Pt is a 60 year old female with a medical history including hypertension, bipolar disorder, and amphetamine abuse presents to the ED with altered mental status noticed by her last night at 1800. The patient was reportedly acting normal two days ago when her left for work, but he returned home yesterday to find her disoriented, falling over, making incoherent statements, and acting abnormally. Associated symptoms include two days of insomnia and balance problems intermittently, she has been up all night cleaning the house rapidly moving from one task to another. The patient denies chest pain, SOB, or other symptoms. She was seen in the ED at onset last night but presented awake and alert, and was subsequently discharged after a normal work-up, before her 's arrival. The patient has had similar symptoms in the past associated with amphetamine abuse, but she denies any recent amphetamine use. The patient' s psychiatrist recently prescribed Wellbutrin which she reportedly began taking one week ago, but her could not find the bottle today and it is not with the medications she has brought in. Patient comes in with bottles of trazodone, mirtazapine, ziprasidone, buspirone , lisinopril, and propranolol. Reviewed note from yesterday. Patient was seen by Dr. Rowell. Found to have elevated WBC count but work-up was otherwise normal. Alcohol was negative. Patient was felt to have normal mental status and was discharged. No urine drug screen was obtained that I can find. ECG 16:24 Sinus rhythm rate 81 QTC 680 Diffuse T-wave inversions throughout When compared to prior (08/07/16) QTC is now prolonged and there are now T-wave inversions all leads LABS: Leukocytosis at 11.9 Hematocrit 32.4 Sodium 130 Potassium 3.5 BUN 13 Creatinine 0.53 Troponin 0.013 BMP 3788 TSH and T3/4 Normal URINE DRUG SCREEN: + Benzodiazepines + Marijuana Otherwise Negative Head CT negative Patient has markedly new EKG changes and I suspect these are toxicologic in origin. Given the patient's markedly prolonged QTC were placed as a precaution she demonstrated no evidence of torsades or ventricular arrhythmias on monitoring. Patient was discussed with poison control and I reviewed all of her medications. At this time, I am not sure what is the cause of her new EKG changes. Many of these medications could potentially cause a prolongation of her QTC though she will not tell me whether or not she has intentionally overdosed on anything. That being said, I am familiar with this patient as I saw her several months ago at which time she had been abusing her prescribed amphetamines and misleading her prescriber and . I suspect that she may be abusing her Wellbutrin among other drugs so I cannot prove this. After discussing with poison control they recommend close monitoring though no immediate additional interventions. Sodium bicarbonate could be considered though they do not have any recommendation about whether or not to try this. Given the patient's markedly EKG changes and mildly elevated troponin I consulted cardiology. 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 I wonder if this could potentially be induced by abusing stimulant drugs. Regardless, the patient requires admission to the hospital on close telemetry monitoring, echocardiogram and further patient by psychiatry. I made several attempts to consult her psychiatrist though I have not been able to get a hold of her. Patient was transferred to the intensive care unit for further management. Source of Hx: Old records Time of Eval: 16:50 Patient Status: Condition improved Re-Evaluation/Progress Note: Discussed with patient and her physcial exam findings, lab results, diagnosis, and plan for admit. Patient agrees with plan for care and all questions were addressed. Consultation #1: Call Returned at: 16:55 [employer]: Agrees with eval, Agrees with plan Note: POISON CONTROL: Discussed patient's case and ECG changes. Recommends admit. Consultation #2: Referral / Consult Name: Nolan Donis MD Consulted With: Cardiology Call Returned at: 17:12 [employer]: Will see patient, Agrees with eval, Agrees with plan Note: Discussed patient's case and ECG changes. Agrees with plan for admit. 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 Qualified Code: I42.7 - Cardiomyopathy due to drug and external agent Bipolar I disorder with ebenezer Insomnia Insomnia type: unspecified Qualified Code: G47.00 - Insomnia, unspecified Disposition: ADMITTED TO HOSPITAL Discharge Condition All VS Reviewed: Yes Condition: Improved Referrals: Aurelio Ross MD (PCP) Crit Care Except Billable Proc Time Spent: 135-164 minutes Services Performed: Patient management by me, Time spent at bedside, Reviewing test results, Reviewing imaging, Discussing patient care, Documentation in record, Time with fam/surrogate Scribe Attestation Portions of this note were transcribed by Lorie Novak. I, Dr. Villalpando, personally performed the history, physical exam, and medical decision-making; I reviewed and confirmed the accuracy of the information in the transcribed note. Signed by: Eusebio Recinos, 08/08/2016, 21:15 copies to: Aurelio Ross MD, Beck O MD Aug 08, 2016 15:57 LORIE NOVAK Aug 08, 2016 16:29
[2016-08-08 16:37] LABS: BASOPHILS % (AUTO) 0.3 % (0-3); EOSINOPHILS % (AUTO) 0.3 % (0-5); MONOCYTES % (AUTO) 5.9 % (4-12); Mean Corpuscular Hemoglobin 22.2 pg (27.0-35.0); Mean Corpuscular Volume 72.6 fL (81-100); NEUTROPHILS % (AUTO) 79.6 % (40-74); Platelet Count 363 bil/L (150-400)
--- NOTE | 2016-08-08 17:03 | DRSVH ---
PROCEDURE: CT BRAIN WITHOUT CONTRAST ([id number]) INDICATIONS: Altered mental status. TECHNIQUE: Noncontrast 4.5 mm thick angled axial sections acquired from the foramen magnum to the vertex, with c oronal reformats. COMPARISON: [facility], CT, CT BRAIN WO CON, 08/07/2016, 9:43. FINDINGS: Image quality: Diagnostic. Brain: There is no acute intra-axial or extra-axial hemorrhage. No extra-axial fluid collection is i dentified. There is no midline shift or mass effect. The orbits are grossly unremarkable. No large areas of diffusely decreased attenuation are evident within the brain to suggest diffuse cer ebral edema. Maybe a subtle areas of low attenuation within the deep white matter of the supratentor ial brain. The ventricles and cortical sulci are a bit prominent. Bones: Calvarium and visualized facial bones are grossly intact. The imaged paranasal sinuses and m astoid air cells are clear. IMPRESSION: Unchanged head CT. No acute intracranial hemorrhage. Dictated by: Justin Cintron M.D. on 08/08/2016 at 15:59 Approved by: Justin Cintron M.D. on 08/08/2016 at 16:01
[2016-08-08] MEDS ORDERED: Ondansetron 2 mg/mL 2 mL Inj IVPUSH PRN (17:25)
[2016-08-08] MEDS ORDERED: Alum-Mag Hydrox-Simeth 30 mL Suspension PO PRN ×2 (17:25→19:15)
[2016-08-08 17:28] LABS: APPEARANCE,URINE HAZY (CLEAR,HAZY); COLOR,URINE YELLOW (YELLOW); OCCULT BLOOD,URINE NEGATIVE (NEGATIVE); UROBILINOGEN,URINE NORMAL (NORMAL)
[2016-08-08] MEDS ORDERED: MIRT30TA6 PO (17:42)
[2016-08-08] MEDS ORDERED: TRAZ-118 PO (17:42)
[2016-08-08] MEDS ORDERED: ZIPR40CA24 PO (17:42)
[2016-08-08] MEDS ORDERED: BUSP30TA2 PO (17:42)
[2016-08-08] MEDS ORDERED: ROSU10TA24 PO (17:42)
[2016-08-08] MEDS ORDERED: PROP20TA5 PO (17:42)
[2016-08-08] MEDS ORDERED: KLO5T PO (17:42)
[2016-08-08] MEDS ORDERED: BUPR100T8 PO (17:42)
[2016-08-08] MEDS ORDERED: ZIPR80CA22 PO (17:42)
[2016-08-08] MEDS ORDERED: LISI-567 PO (17:42)
[2016-08-08 17:53] VITALS: BP 122/77; PULSE 74; RESP 23; O2SAT 99
[2016-08-08 17:59] VITALS: BP 122/77; PULSE 74; RESP 23; O2SAT 99
[2016-08-08 19:01] VITALS: BP 135/84; PULSE 73; RESP 18; O2SAT 100
[2016-08-08] MEDS ORDERED: Polyethylene Glycol (PEG) 17 Gm Powder PO PRN (19:15)
[2016-08-08] MEDS ORDERED: Senna-Docusate 8.6-50 mg Tablet PO PRN (19:15)
[2016-08-08] MEDS ORDERED: Magnesium Sulf 2 Gm/50mL Water 2 GM in IV Premix 1 EACH IV ONE (19:25)
[2016-08-08 19:40] VITALS: BP 114/69; PULSE 78; RESP 26; O2SAT 99
--- NOTE | 2016-08-08 20:28 | PCM.HPMED ---
Subjective Date of Service Aug 08, 2016 Primary Provider: Admitting Physician: Dell Gray MD Primary Care Physician: Aurelio Ross MD Attending Physician: Dell Gray MD Admit Status: From the Emergency Department, Critical Care Chief Complaint: Altered mental status History of Present Illness: Mrs. Culp is a pleasant 60-year-old female with a history of prescribed dextroamphetamine overuse and abuse, anxiety,ADHD, bipolar disorder, and hypertension, presented to the emergency department with altered mental status. Initial workup included revelation of a significantly prolonged QT interval. She was admitted for evaluation and treatment of suspected medication overdose. Hospital day 1 Ms. Culp was previously seen in the emergency department 08/07 for altered mental status and ebenezer, but was found to be appropriate, oriented, and discharged in stable condition. She was also seen 05/31/16 for dextroamphetamine withdrawal, in addition to ED visit 05/25/16, for dextroamphetamine and benzodiazepine overuse. At that ER visit, she was recommended to be admitted, but she refused, and was discharged AGAINST MEDICAL ADVICE, and agreed to follow-up with her psychiatrist regarding dextroamphetamine taper. Patient admits to not using dextroamphetamine medication correctly, stating that she needed increased to keep her energy levels. She cannot state why she is in the hospital this time, other than her history of abusing that medication. At this time, she denied any current use of dextroamphetamine, and also denied any use of any other illicit substances, including illicit substances. She admits to smoking marijuana. The time of admission, she is resting supine in bed, alert and oriented, in no acute distress. She denied any chest pain, palpitations, shortness of breath, nausea , vomiting, abdominal pain, generalized pain. She did admit to extreme fatigue , and would like to get some rest. Overall, she is a poor historian, and is unable to recall the names of many of her medications, other than the recently discontinued dextroamphetamine. She denies any overdose of her current medications, and denies any harm to herself or others. I called and spoke with the at the time of admission, he states that the patient has had ongoing, long-term psychiatric issues, with these repeated bouts of high energy and sleeplessness, followed by a "crash." He states that approximately 2 days ago the patient was of normal health, and then she began to talk nonsensically, and perform odd tasks. Examples he provided included when she prepared her son a bowl of dog food, placed milk in the freezer, would not sleep for more than 5-10 minutes for the evening, would make odd comments unrelated to topics at hand, and would pace around the house. He does not believe she intentionally overdosed on any medications, but he cannot pinpoint what might be going on other than ongoing psychiatric issues which may be undertreated. He does share that she has a history of suicidal ideation, in which she received electroconvulsive therapy, back in 2004 or/2005 , at [facility]. He denies any recent suicidal ideation. He believes she has been compliant with her current medication list, and notes that she was prescribed an amphetamine medication, which he is aware and shares that she was overdosing on. He states that medication has been discontinued, and was replaced with Wellbutrin. He does not believe she had any leftover medication. He is not suspicious of any other drug use, including cocaine, heroin, methamphetamines. He states she had been followed by psychiatry by someone named Dr. Quiroz of [facility], but has not been seen recently. The does share that she has a strong family history of psychiatric disorders both in her sisters and mother, including the diagnoses of ADHD, bipolar. In the ED, T 36.9, pulse 73, respiratory rate 18, blood pressure 135/84, 100% on room air; initial labs included WBC 11.9, hemoglobin 9.9, platelets 363, sodium 1:30, potassium 3.5, creatinine 0.53, AST 61, ALT 26, troponin 0.013, proBNP 3788, TSH 2.850 with free T4 1 0.5, magnesium 1.8. Blood cultures were ordered and obtained. Utox completed in the emergency department was negative for salicylates, negative for acetaminophen, subsequent U tox was negative for opiates, methadone, barbiturates, amphetamines, benzodiazepines, cocaine, but was positive for cannabinoids. CT brain did not reveal any acute intracranial abnormalities; initial EKG was remarkable for significantly prolonged QT interval at 680. She was transported to [facility] in stable condition, with external pacer pads in place. Review of Systems: Complete ROS obtained; pertinent positives and negatives as noted above Allergies Coded Allergies: No Known Allergies (Unverified , 08/08/16) Home Medications Obtained from ED list; pt unable to recall names of medications Bupropion ER (Bupropion ER) 100 Mg Tablet.er 100 MG PO BID Buspirone (Buspirone) 30 Mg Tablet 30 MG PO BID Ferrous Sulfate (Ferrous Sulfate) 325 Mg Tablet 325 MG PO BID Lisinopril (Lisinopril) 20 Mg Tablet 20 MG PO DAILYWD Mirtazapine (Mirtazapine) 30 Mg Tablet 60 MG PO DAILYWD Propranolol HCl (Propranolol HCl) 20 Mg Tablet 20 MG PO TID Rosuvastatin Calcium (Rosuvastatin Calcium) 10 Mg Tablet 10 MG PO DAILYWD Trazodone (Trazodone) 100 Mg Tablet 150-200 MG PO HS Ziprasidone (Ziprasidone) 80 Mg Capsule 80 MG PO QAM ZIPRASIDONE 80 MG IN AM, 40 MG W/ DINNER Ziprasidone (Ziprasidone) 40 Mg Capsule 40 MG PO DAILYWD ZIPRASIDONE 80 MG IN AM, 40 MG W/ DINNER Scheduled PRN Clonazepam (Clonazepam) 0.5 Mg Tablet 0.5 MG PO BID PRN PRN For Anxiety PMH Recent ED visits: Dextroamphetamine abuse, ebenezer, hyponatremia Hypertension Anxiety Bipolar/ebenezer ADHD Prescription amphetamine addiction/abuse and withdrawal Childhood asthma Suicidal ideation s/p ECT in She denies any personal history of diabetes, coronary artery disease, other cardiac conditions such as dysrhythmias, pulmonary conditions, gastrointestinal disorders, rheumatologic disorders, history of stroke Surgical History Electroconvulsive therapy x3; [place] in She denies any surgical history Family History Denies any family history of cardiac rhythm abnormalities shares extensive family history of psychiatric disorders including bipolar, ADHD, of her mother and sister Social History Occupation: disabled Hx Alcohol Use: No ("social") Hx Substance Use: Yes (marijuana, hx amphetamine abuse) Smoking Status: Former Smoker Living Arrangement: with Family (, local) Exam Vital Signs Vital Sign - Last Date Time Temp Pulse Resp B/P Pulse Ox O2 Delivery O2 Flow Rate FiO2 08/08/16 19:40 78 26 114/69 99 Room Air 08/08/16 19:01 36.9 Exam General: Patient is alert and oriented, cooperative, poor historian; no acute distress HEENT: Atraumatic, sclera anicteric, no conjunctival hemorrhage, mucous membranes moist, EOMI Chest: External pacer pads in place Cardiac: Regular rate and rhythm at time of examination, no murmurs appreciated Respiratory: Adequate airflow all conway, no wheeze or rhonchi appreciated Abdomen: Soft, nondistended, nontender Extremities: No edema appreciated of upper or lower extremities, no sites of ecchymosis Pulses: Radial equal and bilateral, posterior tibialis equal and bilateral Skin: Warm and dry Neuro: Cranial nerves II through XII appear grossly intact, facial expressions were symmetrical, speech was without slur; she was able to follow commands well Psych: Appropriate responses to questioning, although lack in detail. Affect appeared normal, but her thoughts remains linear and organized. Poor insight and judgment based on inability to recall events leading to this admission, and history of dextroamphetamine abuse She cannot state why she was here, other than her history of dextroamphetamine abuse, where she admitted to taking more than the prescribed amount, because it gave her "energy" Lab and Diagnostics Result Diagram: 08/08/16 1620 08/08/16 1620 Assessment & Plan Mrs. Culp is a pleasant 60-year-old female with a history of prescribed dextroamphetamine overuse and abuse, anxiety,ADHD, bipolar disorder, and hypertension, presented to the emergency department with altered mental status. Initial workup included revelation of a significantly prolonged QT interval. She was admitted for evaluation and treatment of suspected medication overdose. Hospital day 1 Altered mental status, acute, present on admission. Improving - On admission: Patient was alert and oriented, pleasant - In ED, patient was reported to be extremely confused - states patient has been confused over recent days leading to this admission - shares that patient has been intermittently forgetful, and he is concerned with development of dementia - MMSE/MoCA to be completed when patient appropriate; mental status likely clouded by underlying psychiatric disorders - Treat underlying causes, suspected to be secondary to medication abuse - Clarify pharmacies, and determine if subsequent refills have been obtained for dextroamphetamine abuse; as it was discussed at previous ED visits she was to taper/DC Prolonged QRS and QT interval, acute, present on admission. Active - Admit: QTc: 680; compared to EKG 05/31/16: QTc 461 - DDx: Hypothyroidism, medication overdose, electrolyte abnormalities of potassium, magnesium, and/or calcium, stroke, starvation - Patient on many high risk medications, including: Trazodone, ziprasidone; other psychiatric meds bupropion, buspirone, mirtazapine - reports that patient has not been eating over recent days, nor sleeping - Telemetry - Repeat EKG in a.m. - External pacer pads in place - Avoid QT prolonging medications, including common medication such as Zofran, opioids, psychiatric medications such as Haldol - No psychiatric medications were resumed at this time secondary to the prolonged QT - Conversation with Poison Control - High risk meds for QRS/QT: Bupropion, propranolol, ziprasidone - Maintain electrolytes: Mg > 2.0, K > 4.0, Ca > 9.0 - Give 1 amp bicarb if QRS > 100 on repeat EKG post lyte infusion tonight - Pt at high risk for seizures: Low threshold for Ativan admin; benzos will not largely affect QRS/QT, benefits > risks - Seizure precautions in place Hypomagnesemia, likely acute, present on admission. Under therapy - On admit: Mg 1.8 - Trend overnight, replace as needed - Also monitoring other electrolytes, including potassium, calcium - RECS FROM POISON CONTROL: Keep Mg > 2.0; Ca > 9.0, K > 4.0 Elevated troponin of undetermined significance, acute, present on admission. Monitored - On admit: Trop 0.013 - Likely secondary to demand, poor energy intake and increased energy expenditure; consider myocardial ischemia secondary - Trend - Monitor EKGs, as noted above Microcytic, hypochromic anemia, chronicity unknown. Presumed stable - On admit: Hb 9.9, MCV 72, MCH 22 - Dx noted on previous documentation - Recommend outpatient follow up - No transfusions indicated at this time - Anemia panel in AM + B12/folate History of bipolar disorder and ADHD, chronic. Presumed unstable - reports recent ebenezer leading to this admission, ebenezer has increased over recent weeks requiring multiple ED visits - History of dextroamphetamine abuse - Psychiatric consultation order has been placed; please contact psychiatric team in morning, as they should see patient when medically stable and QT improves - Records request placed to Dr. Quiroz's office/PCP Vandana History of suicidal ideation, presumed to be stable - Patient denies any harm to self the time of admission - not suspicious of any suicidal thoughts, ideation - Psychiatric consultation as above - [employer] consult for resources Leukocytosis, chronicity unknown, present on admission. Presumed stable - On admit: WBC 11.9; WBC 08/07 17.2 - Likely secondary to stress - No signs of infection; continue to monitor PRN: Fever/pain/bowel; no anti-emetics added at this time secondary to prolonged QT DVT: SCDs Diet: General GI: Not indicated, as many acid reducers also prolong QT CODE STATUS: Full code; this was also discussed with the , whom agrees with full code Patient status: Due to severity of presenting symptoms, extreme risk of adverse events, and likely course of care, anticipated length of stay exceeds 2 nights; he should admitted as CCU status secondary to high risk of adverse events Pain Evaluation: Adequate Pain Control GI Prophylaxis: Not indicated VTE Prophylaxis: SCDs Resuscitation Status: CPR: Attempt Resuscitation Attending Statement The patient was seen and examined together with house staff on 08/08/2016 and I agree with the history, exam and plan as outlined in the note above. Rose Molina DO Aug 08, 2016 20:28 Celina Woodard DO Aug 09, 2016 03:50
[2016-08-08 22:57] LABS: Magnesium 2.6 mg/dL (1.6-2.6); Phosphorus 2.5 mg/dL (2.5-4.9)
[2016-08-08] MEDS ORDERED: KCl 40 mEq/D5W 500 mL 40 MEQ in IV Premix 1 EACH IV ONE (23:20)
[2016-08-08] MEDS ORDERED: Sodium Bicarb (50 mEq) 8.4% 1 mEq/mL 50 mL Syringe IVPUSH ONE (23:20)
[2016-08-08 23:35] VITALS: BP 118/76; PULSE 68; RESP 20; O2SAT 100
[2016-08-09] VITALS (8 sets, daily range): BP systolic 118–159; BP diastolic 76–104; PULSE 73–86; RESP 17–22; O2SAT 97–99
[2016-08-09 01:33] LABS: APPEARANCE,URINE CLEAR (CLEAR,HAZY); COLOR,URINE YELLOW (YELLOW)
[2016-08-09 01:34] LABS: OCCULT BLOOD,URINE NEGATIVE (NEGATIVE); UROBILINOGEN,URINE NORMAL (NORMAL)
[2016-08-09 03:05] LABS: BASOPHILS % (AUTO) 0.6 % (0-3); MONOCYTES % (AUTO) 11.2 % (4-12); Mean Corpuscular Hemoglobin 22.2 pg (27.0-35.0); Mean Corpuscular Volume 72.9 fL (81-100); NEUTROPHILS % (AUTO) 56.1 % (40-74); Platelet Count 325 bil/L (150-400)
[2016-08-09 03:35] LABS: Magnesium 2.1 mg/dL (1.6-2.6); Phosphorus 2.1 mg/dL (2.5-4.9); Unsaturated Iron Binding 410.3 ug/dL
[2016-08-09] MEDS ORDERED: KCl 40 mEq/D5W 500 mL 40 MEQ in IV Premix 1 EACH IV ONE (04:00)
--- NOTE | 2016-08-09 04:41 | NUR ---
EKG Changes/ K Replacement Patient with QTc of 680 and QRSD 115. K/Mg replacement protocol initiated, starting K 3.5 and Mg 1.8. Mg rider and 20mEq K rider completed; subsequent Mg 2.4 and K 3.2. Per poison control, goal for K is >4. QTc improved to 637 and QRSD 113. 40mEq K rider hung per provider orders and bolus of sodium bicarb given. Repeat labs and EKG showed K 3.6, QTc 529. Continue with K infusions. Continue close monitoring.
--- NOTE | 2016-08-09 10:16 | NUR ---
Evaluation completed. Please go to "Notes" then click on "Assessments and Notes" (bottom left corner of screen). Then select appropriate discipline tab on top of screen.
--- NOTE | 2016-08-09 12:06 | PCM.PNMED ---
Subjective Date of Service Aug 09, 2016 Subjective No chest pain, cough, shortness of breath. No headache. No confusion or hallucinations. No shortness of breath or nausea. She has a good appetite. Exam Vital Signs Vital Sign - Last Date Time Temp Pulse Resp B/P Pulse Ox O2 Delivery O2 Flow Rate FiO2 08/09/16 11:40 84 22 156/94 99 Room Air 08/09/16 08:27 36.7 Intake and Output 08/08/16 08/08/16 08/09/16 Cumulative From/Thru 15:00 23:00 07:00 08/08/16 15:22 - 08/09/16 06:04 Intake Total 982 ml 982 ml Output Total 1600 ml 1600 ml Balance -618 ml -618 ml Intake Oral 200 ml 200 ml IV Total 782 ml 782 ml Output Urine Total 1600 ml 1600 ml # Voids 2 2 Exam Alert and oriented -3, no distress. Fluent speech Anicteric sclera. Lungs are clear with normal rate and effort Heart is regular without murmur gallop or rub Abdomen soft nontender, flat Extremities are free of edema. Skin is free of rash or lesions. IVs and Medications Medications Reviewed: Medications were reviewed in detail Lab and Diagnostics Result Diagram: 08/09/16 0250 08/09/16 0250 Assessment & Plan Mrs. Culp is a pleasant 60-year-old female with a history of prescribed dextroamphetamine overuse and abuse, anxiety,ADHD, bipolar disorder, and hypertension, presented to the emergency department with altered mental status. Initial workup included revelation of a significantly prolonged QT interval. She was admitted for evaluation and treatment of suspected medication overdose. Hospital day 1 Metabolic encephalopathy, POA. Improved. The patient appears to be at mental baseline this morning. This is likely related to her acute toxic ingestion of Wellbutrin. Prolonged QRS and QT interval, acute, present on admission. Active, and improving. - Admit: QTc: 680; compared to EKG 05/31/16: QTc 461 - DDx: Hypothyroidism, medication overdose, electrolyte abnormalities of potassium, magnesium, and/or calcium, stroke, starvation - Patient on many high risk medications, including: Trazodone, ziprasidone; other psychiatric meds bupropion, buspirone, mirtazapine - reports that patient has not been eating over recent days, nor sleeping - Telemetry - Repeat EKG in a.m. - External pacer pads in place - Avoid QT prolonging medications, including common medication such as Zofran, opioids, psychiatric medications such as Haldol - No psychiatric medications were resumed at this time secondary to the prolonged QT - Conversation with Poison Control - High risk meds for QRS/QT: Bupropion, propranolol, ziprasidone - Maintain electrolytes: Mg > 2.0, K > 4.0, Ca > 9.0 - Give 1 amp bicarb if QRS > 100 on repeat EKG post lyte infusion tonight - Pt at high risk for seizures: Low threshold for Ativan admin; benzos will not largely affect QRS/QT, benefits > risks - Seizure precautions in place Follow electrolytes, replete and repeat ECG. Hold Wellbutrin. Hypomagnesemia, POA, improved. We will recheck this today. - On admit: Mg 1.8 - Trend overnight, replace as needed - Also monitoring other electrolytes, including potassium, calcium - RECS FROM POISON CONTROL: Keep Mg > 2.0; Ca > 9.0, K > 4.0 Elevated troponin of undetermined significance, acute, present on admission. No further workup at this point. - On admit: Trop 0.013 - Likely secondary to demand, poor energy intake and increased energy expenditure; consider myocardial ischemia secondary - Trend - Monitor EKGs, as noted above Microcytic, hypochromic anemia, chronicity unknown. Stable - On admit: Hb 9.9, MCV 72, MCH 22 - Dx noted on previous documentation - Recommend outpatient follow up - No transfusions indicated at this time - Anemia panel in AM + B12/folate History of bipolar disorder and ADHD, chronic. POA. - reports recent ebenezer leading to this admission, ebenezer has increased over recent weeks requiring multiple ED visits - History of dextroamphetamine abuse - Psychiatric consultation order has been placed; please contact psychiatric team in morning, as they should see patient when medically stable and QT improves - Records request placed to Dr. Quiroz's office/PCP Vandana At this point we will simply hold Wellbutrin but really maintain on other medications. History of suicidal ideation, not currently active - Patient denies any harm to self the time of admission - not suspicious of any suicidal thoughts, ideation - Psychiatric consultation as above - [employer] consult for resources PRN: Fever/pain/bowel; no anti-emetics added at this time secondary to prolonged QT DVT: SCDs Diet: General GI: Not indicated, as many acid reducers also prolong QT CODE STATUS: Full code; this was also discussed with the , whom agrees with full code Patient status: Due to severity of presenting symptoms, extreme risk of adverse events, and likely course of care, anticipated length of stay exceeds 2 nights; he should admitted as CCU status secondary to high risk of adverse events Follow electrolytes and monitor on telemetry for another 24 hours anticipate probable discharge tomorrow which is Thursday. GI Prophylaxis: Not indicated VTE Prophylaxis: SCDs VTE Mechanical Devices: Intermittant Pneumatic CD Resuscitation Status: CPR: Attempt Resuscitation Carlos Batista MD Aug 09, 2016 12:06
[2016-08-09 13:46] LABS: Phosphorus 2.3 mg/dL (2.5-4.9)
--- NOTE | 2016-08-09 18:05 | NUR ---
Attempted to get RULA signed. Pt sleeping, will try later.
--- NOTE | 2016-08-09 19:18 | NUR ---
[facility] signed
--- NOTE | 2016-08-09 19:32 | NUR ---
Electrolytes/BP Pt's K+ 3.6 during am labs and Mg2+/Ca2+ within range suggested by poison control, Pt receiving a K+ rider at shift change which completed without issue, f/u labs already ordered for noon, Pt's K+ came back at 4.1, updated who verbalized that he would order labs in the am. Pt's BP trends today: 128/81, 156/94, and 159/104, made aware, Pt's home dose of PO lisinopril resumed and dose given, oncoming CELSO RN made aware.
[2016-08-10] VITALS (11 sets, daily range): BP systolic 125–164; BP diastolic 72–100; PULSE 65–94; RESP 20–26; O2SAT 96–100
--- NOTE | 2016-08-10 06:47 | NUR ---
Pain Pt A&Ox3, LEIGH, very pleasant and cooperative w/ care. Pt appeared to sleep comfortably between care interventions. and only voiced pain this morning in left breast area, stated this occurred yesterday and she had relief w/ Tylenol. Pt stated this has occurred since her fall a couple days ago. Pt stated pain was 8/10 and was worse w/ palpation/activity. MD notified, did not want EKG at this time but to try Tylenol first. Pt instructed to notify nursing if Tylenol not effective, has appeared to be sleeping comfortably w/ reassessments. Per day RN to order labs in AM.
--- NOTE | 2016-08-10 11:13 | PCM.PNMED ---
Subjective Date of Service Aug 10, 2016 Subjective She is doing well. No dyspnea. Some left sided chest wall pain from her fall. No bruising. No hallucinations, nausea or confusion or abdominal pain. No suicidal intent nor has she had any recently. One suicide attempt about 15 years ago. No overnight events. Exam Vital Signs Vital Sign - Last Date Time Temp Pulse Resp B/P Pulse Ox O2 Delivery O2 Flow Rate FiO2 08/10/16 08:55 92 08/10/16 07:54 36.6 24 131/91 96 Room Air Intake and Output 08/09/16 08/09/16 08/10/16 Cumulative From/Thru 15:00 23:00 07:00 08/08/16 15:22 - 08/10/16 05:47 Intake Total 700 ml 1682 ml Output Total 1400 ml 3000 ml Balance -700 ml -1318 ml Intake Oral 700 ml 900 ml IV Total 782 ml Output Urine Total 1400 ml 3000 ml # Voids 2 Exam Alert and oriented -3, no distress. Fluent speech Anicteric sclera. Lungs are clear with normal rate and effort Heart is regular without murmur gallop or rub Abdomen soft nontender, flat Extremities are free of edema. Skin is free of rash or lesions. Left chest wall and breast exam is unremarkable no evidence of implant rupture or other injury IVs and Medications Medications Reviewed: Medications were reviewed in detail Lab and Diagnostics Result Diagram: 08/09/16 0250 08/09/16 1248 Assessment & Plan Metabolic encephalopathy, POA. His altered. Prolonged QRS and QT interval, acute, present on admission. Improving. - Admit: QTc: 680; compared to EKG 05/31/16: QTc 461 - Avoid QT prolonging medications, including common medication such as Zofran, opioids, psychiatric medications such as Haldol - No psychiatric medications were resumed at this time secondary to the prolonged QT Hypomagnesemia, POA, resolved. Follow clinically Elevated troponin of undetermined significance, acute, present on admission. No further workup at this point. Microcytic, hypochromic anemia, chronicity unknown. Stable Bipolar disorder and ADHD, POA. Stable. We will resume her normal medications at time of discharge with close follow-up. - reports recent ebenezer leading to this admission, ebenezer has increased over recent weeks requiring multiple ED visits - History of dextroamphetamine abuse - Psychiatric consultation order has been placed; please contact psychiatric team in morning, as they should see patient when medically stable and QT improves - Records request placed to Dr. Quiroz's office/PCP Ross History of suicidal ideation, not currently active Patient inpatient status. Despite discharge on August 11. GI Prophylaxis: Not indicated VTE Prophylaxis: SCDs VTE Mechanical Devices: Intermittant Pneumatic CD Resuscitation Status: CPR: Attempt Resuscitation Carlos Batista MD Aug 10, 2016 11:13
[2016-08-10] MEDS: BusPIRone 15 mg Dividose Tablet PO SCH ×2 (11:32→20:39)
[2016-08-10] MEDS: HYDROcodone-APAP 5-325 mg Tablet PO PRN ×2 (11:38→16:21)
--- NOTE | 2016-08-10 14:38 | PCM.CHPPSY ---
Mental Health [facility] Date of Service Aug 10, 2016 Admission Date/Time Aug 08, 2016 at 18:27 Reason for Admission Prolonged QT intervals suspected to do with recent addition of psychiatric medications Primary Physician Attending Physician: Celina Woodard DO Other Physician: Source of Information: Patient Interview, Chart Review, Observation Chief Complaint Chief Complaint Altered mental status A 60 year old white female retired from [employer] in the s. Her continues to work for [employer]. She has been a patient of Dr. Kumar psychiatry at [facility] in [place] for the past 10-15 years She reports being treated for bipolar disorder, and attention deficit disorder. She states her main psychiatry problem is anxiety.She presented to the ED with altered mental status noticed by her . The patient was reportedly acting normal when her left for work, but returning home to find her disoriented, falling over, making incoherent statements, and acting abnormally. Associated symptoms include two days of insomnia and balance problems. The patient denied chest pain, SOB, or other symptoms. The patient has had similar symptoms in the past associated with amphetamine abuse, but she denies any recent amphetamine use. The patient's psychiatrist recently prescribed Wellbutrin which she reportedly began taking one week ago. Initial workup included revelation of a significantly prolonged QT interval ( 680s) with diffuse T-wave inversions throughout. She was admitted for evaluation and treatment of suspected medication overdose. During my evaluation she minimized any psychiatric complaints other than anxiety. She denied psychiatric review of systems for ebenezer psychosis trauma or symptoms abuse. She denied depressive symptoms or suicidal ideation. She is on relatively high doses of multiple medications which potentially prolong QT (Wellbutrin, Remeron, trazodone, Geodon). Allergies Coded Allergies: No Known Allergies (Unverified , 08/08/16) Home Medications Scheduled Bupropion ER (Bupropion ER) 100 Mg Tablet.er 100 MG PO BID (Reported) Last Taken: 100 MG on 08/08/16 0900 Buspirone (Buspirone) 30 Mg Tablet 30 MG PO BID (Reported) Last Taken: 30 MG on 08/08/16 0900 Ferrous Sulfate (Ferrous Sulfate) 325 Mg Tablet 325 MG PO BID Last Taken: 325 MG on 08/08/16 0900 Lisinopril (Lisinopril) 20 Mg Tablet 20 MG PO DAILYWD (Reported) Last Taken: 20 MG on 08/07/16 1800 Mirtazapine (Mirtazapine) 30 Mg Tablet 60 MG PO DAILYWD (Reported) Last Taken: 60 MG on 08/07/16 1800 Propranolol HCl (Propranolol HCl) 20 Mg Tablet 20 MG PO TID (Reported) Last Taken: 20 MG on 08/08/16 0900 Rosuvastatin Calcium (Rosuvastatin Calcium ) 10 Mg Tablet 10 MG PO DAILYWD (Reported) Last Taken: 10 MG on 08/07/16 1800 Trazodone (Trazodone) 100 Mg Tablet 150- 200 MG PO HS (Reported) Last Taken: 200 MG on 08/07/162099 Ziprasidone (Ziprasidone) 80 Mg Capsule 80 MG PO QAM (Reported) ZIPRASIDONE 80 MG IN AM, 40 MG W/ DINNER Last Taken: 80 MG on 08/08/16 0900 Ziprasidone (Ziprasidone) 40 Mg Capsule 40 MG PO DAILYWD (Reported) ZIPRASIDONE 80 MG IN AM, 40 MG W/ DINNER Last Taken: 40 MG on 08/07/16 1800 Scheduled PRN Clonazepam (Clonazepam) 0.5 Mg Tablet 0.5 MG PO BID PRN PRN For Anxiety ( Reported) Last Taken: 1 MG on 08/07/162099 Psychiatric Treatment History Joanne reports being followed by Dr. Quiroz psychiatrist at [facility] for the past 10-15 years Past Suicide Attempts Relevant History Relevant Details: Age of First Attempt: Number of Attempts: Date of Last Attempt: Hx non-suicidal Self-Injury Relevant History Relevant History Details: Past Medical History Past Medical/Surgical History Currently ?: No Hx Hospitalization: No Hx Surgeries: Yes (appendectomy) Hx Anesthesia Reactions: No Past Social History Family: Review of Systems Constitutional: No: Chills, Fever, Malaise, Other, Sweats, Weakness Cardiovascular: Denies: Chest Pain, Edema, Lt Headedness, Orthopnea, Other, Palpitations, Paroxysmal Noc. Dyspnea Respiratory: Denies: Cough, Hemoptysis, Other, Pleuritic Chest Pain, SOB with Exertion, Shortness of Breath, Sputum, Wheezing Gastrointestinal: Denies: Abdominal Pain, Change in Appetite, Constipation, Diarrhea, Heartburn, Hematochezia, Melena, Nausea, Other, Use of Laxatives, Vomiting Genitourinary: Denies: Anuria, Change in Frequency, Dysuria, Hematuria, Incontinence, Nocturia, Other, Retention Mental Status Exam Vital Signs Vital Signs Date Time Temp Pulse Resp B/P Pulse Ox O2 Delivery O2 Flow Rate FiO2 08/10/16 13:00 36.5 75 20 130/95 97 Room Air 08/10/16 08:55 92 08/10/16 07:54 36.6 94 24 131/91 96 Room Air Appearance: Neat/well groomed Attitude: Pleasant, Cooperative Behavior: No unusual behavior Affect: Well Modulated/Appropriate Mood: Euthymic Thought Process/Associations: Logical/Sequential, Goal Directed Speech Production: Normal Speech Rate: Normal Speech Articulation: Normal Thought Content: Appropriate Danger to Self/Suicidal Ideati: None Danger to Others: None Consciousness: Alert Orientation: Person, Place, Date, Situation Memory: Grossly Intact Estimate Intellectual Function: Above Average Basis for IQ estimate: Awareness current events, Word use/vocabulary, Educational history Cognitive Testing Method: Abstract Reasoning during interview Insight: Good Judgement: Good Result Diagram: 08/09/16 0250 08/09/16 1248 Mental Health Plan A 60 year old white female retired from [employer] in the . She has been a patient of Dr. Kumar,psychiatry at [facility] in [place] for the past 10-15 years. She reports being treated for bipolar disorder, and attention deficit disorder. She states her main psychiatry problem is anxiety.She presented to the ED with altered mental status noticed by her . The patient's psychiatrist recently prescribed Wellbutrin which she reportedly began taking one week ago was likely the medication that in combination with Remeron, trazodone, Geodon was enough to significantly impair cardiac function. Initial workup included revelation of a significantly prolonged QT interval ( 680s) with diffuse T-wave inversions throughout. She was admitted for evaluation and treatment of suspected medication overdose. During my evaluation she minimized any psychiatric complaints other than anxiety. She denied psychiatric review of systems for ebenezer psychosis trauma or symptoms abuse. She denied depressive symptoms or suicidal ideation. She is on relatively high doses of multiple medications which potentially prolong QT (Wellbutrin, Remeron , trazodone, Geodon). Her psychiatric medications have been held and She is presently showing no signs of side effects from withdrawal. [place] AXIS I: Generalized anxiety disorder Rule out bipolar mood disorder AXIS II: Unknown AXIS III: Cardiac conduction abnormalities with T-wave inversion and QT interval prolongation AXIS IV: Mild AXIS V: GAF 60 Medications Treatments Would recommend attempting to: 1 Obtain collateral data to assist in treatment planning. [facility] will be open in the a.m. [address] Quiroz to find a Medication regimen effective in stabilization of mood and sleep, and one that she can tolerate without side effects 3 At present and until we can coordinate with Dr. Quiroz I would recommend holding her current medications and using Low-dose Klonopin to manage anxiety. Recommend 0.25 mg twice a day and 0.5 mg at bedtime as tolerated. 4 I will ask to follow-up in the a.m. As this is my last day on the service. Amauri Henning MD Aug 10, 2016 14:38 5 patient is free to go from a psychiatry standpoint. Thank you for a very interesting consult. Amauri Henning MD Aug 10, 2016 14:38
--- NOTE | 2016-08-10 15:09 | NUR ---
Cardiac/Pain Pt QTc 0.48 and QT 0.42. Pacer pads were removed and pt was placed on telemetry box. Poison Control contacted this RN today and based upon current cardiac trends, vitals and labs, they determined that the case could be closed. Pt continues to c/o pain in left breast/ribs. States it is an 8-9/10 pain level, she was also concerned that she may have ruptured one of her breast implants. States pain increases with deep breaths. MD examined and believes that she has bruised her breast/ribs from falling when she had a recent syncopal episode. MD ordered PO [place] 5-325. Pt administered and stated that she had relief, with a stated pain level of 4/10.
--- NOTE | 2016-08-10 15:41 | NUR ---
RULA signed LUPIS Garcia
--- NOTE | 2016-08-10 15:45 | NUR ---
Social Work: Initial Assessment / Chemical Dependency / Readiness for d/c Data: Pt is a 60 y/o female admitted for prolonged QTC, polysubstance abuse. Pt's PCP is Dr Ross, pt's insurance is [employer] with medicare secondary. EMR reviewed. Readmit score is 2, low. CASE MANAGERS met with pt at bedside for Initial Assessment and chemical dependency assessment, role explained. Pt states that she lives in a single story home with her with no DME. Pt drives, has no hx of HH or SNF, no LTC or VA benefits, and is not a caregiver. Pt is independent with all ADL's, including medication management. CASE MANAGERS inquired about drug use, pt states she has used marijuana to manage her anxiety since she was in her 's. She states all other medications she takes are prescribed to her. Pt denies any other drug or alcohol use. Pt denies SI/HI. Pt states she has a psychiatrist, Dr. Richie Drummond and has an appointment set for August 30. Pt denies any other needs at this time, declining to talk further about MH or CD. CASE MANAGERS spoke with MD who states that pt's recent labs could result from psychiatric medications and that pt likely is taking prescribed medications. Likely no d/c planning needs at this time. CASE MANAGERS will continue to follow if needs arise. Assessment: Pt who is independent at baseline. Plan: Pt will d/c home via POV when medically stable with spouse, likely tomorrow per MD. Likely no d/c planning needs at this time. CASE MANAGERS will continue to follow if needs arise. LUPIS Garcia Addendum: 08/10/16 at 1555 by ELIOT SHAFFER Amended: Links added.
[2016-08-10] MEDS ORDERED: 0.9% Sodium Chloride 500 ML IV ONE (21:50)
[2016-08-11] MEDS: HYDROcodone-APAP 5-325 mg Tablet PO PRN (00:47)
[2016-08-11 03:52] VITALS: BP 126/85; PULSE 69; RESP 18; O2SAT 98
--- NOTE | 2016-08-11 07:17 | NUR ---
Fall/Hypotension/Pain Pt given HS meds including propanolol when pt hypertensive. Per report pt able to independently get up to BR during day and had no difficulties. Fall score 45. Pt instructed to use non slip socks and sit before standing to make sure she was not dizzy. Pt voiced understanding. About an hour later pt was seen on the ground face down. Pt awake and stated she got dizzy and lowered herself to ground after using BR. Pt stated she did not fall or lose consciousness but was noted to have a laceration to the left of her eye. SBP 60s-80s. MD notified and stat head CT ordered as well as 500cc NS bolus. Pt helped to bed and BP promptly came up. head CT prelim report negative for fracture/bleed, FYI page sent to MD about CT conclusion. BP now WNL last few checks. [place] alarm applied and pt instructed to call before getting up and voiced understanding. Pt given PRN [place]/oxycodone for left breast pain and mild headache around laceration. Pt states effectiveness.
[2016-08-11 07:30] VITALS: BP 148/88; PULSE 78; RESP 16; O2SAT 96
[2016-08-11] MEDS: BusPIRone 15 mg Dividose Tablet PO SCH (07:40)
[2016-08-11 09:10] VITALS: PULSE 84
--- NOTE | 2016-08-11 09:32 | DRSVH ---
PROCEDURE: CT BRAIN WITHOUT CONTRAST ([id number]) INDICATIONS: POST FALL TECHNIQUE: Noncontrast 4.5 mm thick angled axial sections acquired from the foramen magnum to the vertex, with c oronal reformats. COMPARISON: [facility], CT, CT BRAIN WO CON, 08/08/2016, 16:54. FINDINGS: Image quality: Excellent. CSF spaces: Basal cisterns are patent. No extra-axial fluid collections. Ventricles are normal in size and shape. Brain: No midline shift. No intracranial masses or hemorrhage. Elizalde-white matter interface is norm al. Skull and face: Calvarium and visualized facial bones are intact, without suspicious lesions. Sinuses: Visualized sinuses and mastoids are clear. IMPRESSION: 1. No acute intracranial process. Dictated by: Marizol Bedoya M.D. on 08/11/2016 at 9:30 Approved by: Marizol Bedoya M.D. on 08/11/2016 at 9:30
--- NOTE | 2016-08-11 10:04 | PCM.DIMED ---
Discharge Instructions Date of Service August 11, 2016 Dates of Hospitalization Aug 08, 2016 at 18:27 Discharge Diagnosis Discharge Diagnosis Metabolic encephalopathy, resolved. Prolonged QRS and QT interval,from medications. Improved. Left face contusion (from fall in hospital) Left chest contusion (secondary to fall before hospital) Hypomagnesemia, resolved. Anemia, stable. Bipolar disorder, stable ADHD, stable. Insomnia, stable. Marijuana use, chronic. Diet No restrictions Activity No restrictions Patient Instructions Dr Quiroz August 30 as scheduled. Follow-up plan Please see Dr Ross in a week with a repeat EKG to see the QT interval Follow-up Provider: Aurelio Ross MD Follow-up with PCP in: 1 week Carlos Batista MD August 11, 2016 10:04
[2016-08-11] MEDS ORDERED: HYDR-4003 PO (10:05)
--- NOTE | 2016-08-11 11:04 | NUR ---
Discharge Patient QTc down to 490. Tele remains SR in the 80s. VSS. Denies dizziness/lightheadedness. Denies pain/discomfort. IV DC'd intact. Reinforced taking only prescribed amount of medication to prevent prolonged QTc in the future. Patient ambulated off unit with all personal belongings accompanied by her . Discharged home via personal vehicle.
--- NOTE | 2016-08-11 11:58 | PCM.DC.MED ---
Discharge Summary Date of Service August 11, 2016 Dates of Hospitalization Date of Hospital Admission Aug 08, 2016 at 18:27 Date of Discharge: August 11, 2016 Providers: Admitting Physician: Celina Woodard DO Primary Care Physician: Aurelio Ross MD Attending Physician: Celina Woodard DO Diagnosis at Time of Discharge Diagnosis at Time of Discharge Metabolic encephalopathy, resolved. Prolonged QRS and QT interval,from medications. Improved. Left face contusion (from fall in hospital) Left chest contusion (secondary to fall before hospital) Hypomagnesemia, resolved. Anemia, stable. Bipolar disorder, stable ADHD, stable. Insomnia, stable. Marijuana use, chronic. Consultations Psychiatry Procedures XRay, CTs & MRIs Brain CT unremarkable ECG 12 Lead Electrocardiogram initially revealed a repolarization abnormality through all of the lateral leads with T-wave inversions and a QTC corrected of 680 and a QT of 585. Repeat electrocardiogram on the day of discharge revealed a mobile repolarization pattern with T-wave inversions in the lateral leads with a QTC of 498 and a QT of 429 Brief History Mrs. Culp is a pleasant 60-year-old female with a history of prescribed dextroamphetamine overuse and abuse, anxiety,ADHD, bipolar disorder, and hypertension, presented to the emergency department with altered mental status. Initial workup included revelation of a significantly prolonged QT interval. She was admitted for evaluation and treatment of suspected medication overdose. Hospital day 1 Ms. Culp was previously seen in the emergency department 08/07 for altered mental status and ebenezer, but was found to be appropriate, oriented, and discharged in stable condition. She was also seen 05/31/16 for dextroamphetamine withdrawal, in addition to ED visit 05/25/16, for dextroamphetamine and benzodiazepine overuse. At that ER visit, she was recommended to be admitted, but she refused, and was discharged AGAINST MEDICAL ADVICE, and agreed to follow-up with her psychiatrist regarding dextroamphetamine taper. Patient admits to not using dextroamphetamine medication correctly, stating that she needed increased to keep her energy levels. She cannot state why she is in the hospital this time, other than her history of abusing that medication. At this time, she denied any current use of dextroamphetamine, and also denied any use of any other illicit substances, including illicit substances. She admits to smoking marijuana. The time of admission, she is resting supine in bed, alert and oriented, in no acute distress. She denied any chest pain, palpitations, shortness of breath, nausea , vomiting, abdominal pain, generalized pain. She did admit to extreme fatigue , and would like to get some rest. Overall, she is a poor historian, and is unable to recall the names of many of her medications, other than the recently discontinued dextroamphetamine. She denies any overdose of her current medications, and denies any harm to herself or others. I called and spoke with the at the time of admission, he states that the patient has had ongoing, long-term psychiatric issues, with these repeated bouts of high energy and sleeplessness, followed by a "crash." He states that approximately 2 days ago the patient was of normal health, and then she began to talk nonsensically, and perform odd tasks. Examples he provided included when she prepared her son a bowl of dog food, placed milk in the freezer, would not sleep for more than 5-10 minutes for the evening, would make odd comments unrelated to topics at hand, and would pace around the house. He does not believe she intentionally overdosed on any medications, but he cannot pinpoint what might be going on other than ongoing psychiatric issues which may be undertreated. He does share that she has a history of suicidal ideation, in which she received electroconvulsive therapy, back in 2004 or/2005 , at [facility]. He denies any recent suicidal ideation. He believes she has been compliant with her current medication list, and notes that she was prescribed an amphetamine medication, which he is aware and shares that she was overdosing on. He states that medication has been discontinued, and was replaced with Wellbutrin. He does not believe she had any leftover medication. He is not suspicious of any other drug use, including cocaine, heroin, methamphetamines. He states she had been followed by psychiatry by someone named Dr. Quiroz of [place], but has not been seen recently. The does share that she has a strong family history of psychiatric disorders both in her sisters and mother, including the diagnoses of ADHD, bipolar. In the ED, T 36.9, pulse 73, respiratory rate 18, blood pressure 135/84, 100% on room air; initial labs included WBC 11.9, hemoglobin 9.9, platelets 363, sodium 1:30, potassium 3.5, creatinine 0.53, AST 61, ALT 26, troponin 0.013, proBNP 3788, TSH 2.850 with free T4 1 0.5, magnesium 1.8. Blood cultures were ordered and obtained. Utox completed in the emergency department was negative for salicylates, negative for acetaminophen, subsequent U tox was negative for opiates, methadone, barbiturates, amphetamines, benzodiazepines, cocaine, but was positive for cannabinoids. CT brain did not reveal any acute intracranial abnormalities; initial EKG was remarkable for significantly prolonged QT interval at 680. She was transported to [facility] in stable condition, with external pacer pads in place. Hospital Course # Metabolic encephalopathy, POA. He presented with acute confusion. Presented metabolic encephalopathy. Her Wellbutrin was held and so her other medications and this did clear over the next day. She attended her mental baseline. This was validated by her . # Prolonged QRS and QT interval, acute, present on admission. Improving. - Admit: QTc: 680; compared to EKG 05/31/16: QTc 461 - Avoid QT prolonging medications, including common medication such as Zofran, opioids, psychiatric medications such as Haldol She had no arrhythmia. She did have electrolyte abnormalities which were corrected at the time of admission. Her QT did decrease as noted above Her Baseline QTC of about 460 As Compared to 05/31/2016. She Notes That She Has Never Had a Problem until the Recent Introduction of the Newest Medication Wellbutrin about Reviewed Weeks Prior to Arrival. #Hypomagnesemia, POA, resolved. Her magnesium deficiency was repleted at the time of admission. # Elevated troponin was trended and not further worked up at this time. # Microcytic, hypochromic anemia, chronicity unknown. This remained stable and also was not further worked up. She is on chronic iron. We will refer this back to her primary care doctor Dr. Ross. $Bipolar disorder and ADHD, POA. Stable. We will resume her normal medications at time of discharge with close follow-up. - reports recent ebenezer leading to this admission, ebenezer has increased over recent weeks requiring multiple ED visits - History of dextroamphetamine abuse - Psychiatric consultation order has been placed; please contact psychiatric team in morning, as they should see patient when medically stable and QT improves - Records request placed to Dr. Quiroz's office/PCP Vand[place] She did well off her medications. The time of discharge we discussed her medications and she will continue to stay off from all different we will also hold trazodone is an easy second drug. She is still on multiple other drugs that can prolong her QT. We will have her follow up within a week with Dr. Ross for repeat EKG after holding only trazodone and Wellbutrin. She has an appointment to see her psychiatrist Dr. Gayle Manzanares on August 30. # History of suicidal ideation, not currently active. No further issues with this. Exam Vital Signs (Last) Date Time Temp Pulse Resp B/P Pulse Ox O2 Delivery O2 Flow Rate FiO2 08/11/16 09:10 84 08/11/16 07:30 36.6 16 148/88 96 Room Air Exam Patient was seen and examined on the day of discharge Test 08/08/16 16:20 08/08/16 17:08 08/09/16 01:05 08/09/16 02:50 Pro-B-Type Natriuretic Peptide 3788pg/mL (0-287) Thyroid Stimulating Hormone (TSH) 2.850uIU/mL (0.450-4.500) Free Thyroxine 1.55ng/dL (0.82-1.77) Hold Steele Top Tube Received (Received) Salicylates Level < 3.0ug/mL (30-250) Acetaminophen Level < 15.0ug/mL Rx (10-25) Urine Opiates Screen Negative Urine Methadone Screen Negative Urine Barbiturates Screen Negative Urine Amphetamines Screen Negative Urine Benzodiazepines Screen Negative Urine Cocaine Metabolite Screen Negative Urine Cannabinoids Screen Positive Urine Color Yellow (YELLOW) Urine Appearance Clear (CLEAR,HAZY) Urine pH 6.0 (5.0-8.0) Urine Specific [place] 1.015 (1.003-1.035) Urine Protein Negativemg/dL (NEG,TRACE) Urine Glucose (UA) Negativemg/dL (NEGATIVE) Urine Ketones 15mg/dL (NEGATIVE) Urine Occult Blood Negative (NEGATIVE) Urine Nitrite Negative (NEGATIVE) Urine Bilirubin Negative (NEGATIVE) Urine Urobilinogen Normalmg/dL (NORMAL) Urine Leukocyte Esterase Negative (NEGATIVE) Urine RBC 0-2/hpf (0-2) Urine WBC 0-5/hpf (0-5) Urine Epithelial Cells Few/hpf (NONE-MOD) Urine Crystals None seen (NONE SEEN) Urine Bacteria Few/hpf (NONE-FEW) Urine Hyaline Casts None/lpf (NONE) Urine Granular Casts None seen (NONE SEEN) Urine Waxy Casts None seen (NONE SEEN) Urine Red Blood Cell Casts None seen (NONE SEEN) Urine White Blood Cell Casts None seen (NONE SEEN) Urine Mucus None seen (None Seen) Urine Trichomonas None seen (NONE SEEN) Urine Yeast None (NONE SEEN) Urinalysis Comment None Urine Culture Reflexed Not indicated Hold Urine Received (Received) White Blood Count 7.0th/mm3 (3.8-10.1) Red Blood Count 4.06mil/mm3 (3.90-5.20) Hemoglobin 9.0g/dL (12.0-15.6) Hematocrit 29.6% (35.0-46.0) Mean Corpuscular Volume 72.9fL (81-100) Mean Corpuscular Hemoglobin 22.2pg (27.0-35.0) Mean Corpuscular Hemoglobin Concent 30.4% (32.0-37.0) Red Cell Distribution Width 24.9% (12.3-15.4) Platelet Count 325bil/L (150-400) Neutrophils (%) (Auto) 56.1% (40-74) Lymphocytes (%) (Auto) 28.0% (14-46) Monocytes (%) (Auto) 11.2% (4-12) Eosinophils (%) (Auto) 4.0% (0-5) Basophils (%) (Auto) 0.6% (0-3) Reticulocyte Count,Calculated 0.5% (0.6-2.6) Lactic Acid Level 0.8mmol/L (0.4-2.0) Iron Level 13ug/dL (35-150) Total Iron Binding Capacity 423ug/dL (250-450) Percent Iron Saturation 3%sat (15-50) Unsaturated Iron Binding 410.3ug/dL Ferritin 26ng/mL (13-150) Total Bilirubin 0.2mg/dL (0.0-1.2) Aspartate Amino Transf (AST/SGOT) 47U/L (0-50) Alanine Aminotransferase (ALT/SGPT) 22U/L (0-32) Alkaline Phosphatase 39U/L (25-165) Total Protein 5.8g/dL (6.4-8.4) Albumin 3.7g/dL (3.4-5.0) Test 08/09/16 08:41 08/09/16 12:48 Troponin T 0.010ug/L (0.0-0.011) Sodium Level 132mEq/L (134-144) Potassium Level 4.1mEq/L (3.5-5.2) Chloride Level 96mEq/L (97-108) Carbon Dioxide Level 23mmol/L (18-29) Blood Urea Nitrogen 6mg/dL (8-27) Creatinine 0.44mg/dL (0.57-1.00) Estimat Glomerular Filtration Rate 208mL/min (>59) Glucose Level 120mg/dL (60-99) Calcium Level 9.0mg/dL (8.5-10.1) Phosphorus Level 2.3mg/dL (2.5-4.9) Magnesium Level 2.0mg/dL (1.6-2.6) Discharge Medications Discharge Medications Buspirone (Buspirone) 30 Mg Tablet 30 MG PO BID (Reported) Ferrous Sulfate (Ferrous Sulfate) 325 Mg Tablet 325 MG PO BID Prescribed by: ALLY CRZU MD Lisinopril (Lisinopril) 20 Mg Tablet 20 MG PO DAILYWD (Reported) Mirtazapine (Mirtazapine) 30 Mg Tablet 60 MG PO DAILYWD (Reported) Rosuvastatin Calcium (Rosuvastatin Calcium) 10 Mg Tablet 10 MG PO DAILYWD ( Reported) Ziprasidone (Ziprasidone) 80 Mg Capsule 80 MG PO QAM (Reported) ZIPRASIDONE 80 MG IN AM, 40 MG W/ DINNER Ziprasidone (Ziprasidone) 40 Mg Capsule 40 MG PO DAILYWD (Reported) ZIPRASIDONE 80 MG IN AM, 40 MG W/ DINNER As needed Clonazepam (Clonazepam) 0.5 Mg Tablet 0.5 MG PO BID PRN PRN For Anxiety ( Reported) Hydrocodone-Acetaminophen 5-325 mg (Hydrocodone-Acetaminophen 5-325 mg) 1 Each Tablet 1 TABLET PO Q4H PRN PRN For Pain Prescribed by: CARLOS BENSON MD Followup Plan Disposition: Home Follow-up plan Please see Dr Ross in a week with a repeat EKG to see the QT interval Discharge Diet: No restrictions Discharge Activity: No restrictions Patient Instructions Dr Quiroz August 30 as scheduled. Follow-up Provider: Aurelio Ross MD Follow-up with PCP in: 1 week Time spent 45 minutes Carlos Benson MD August 11, 2016 11:57
[2016-08-12 07:12] LABS: Vitamin B12 281 pg/mL (211-946)
== END 2016-08-11 11:02 | disposition home or self-care (01) | DRG 917 ==
LOC: SED 15:11 → OBSVTOIN 18:27 → PCC 18:27
PROVIDERS: ADMIT Internal Medicine; ATTEND Internal Medicine
DX: T43.291A Poisoning by other antidepressants, accidental (unintentional), initial encounter (principal); G93.41 Metabolic encephalopathy; I42.9 Cardiomyopathy, unspecified; F30.9 Manic episode, unspecified; I10 Essential (primary) hypertension; F15.10 Other stimulant abuse, uncomplicated; D64.9 Anemia, unspecified; F90.9 Attention-deficit hyperactivity disorder, unspecified type; Z91.5 Personal history of self-harm; Z87.891 Personal history of nicotine dependence; Y92.009 Unspecified place in unspecified non-institutional (private) residence as the place of occurrence of the external cause